=== PATIENT | female | born 1980 | race African-American/Black ===

== ENCOUNTER 2017-06-16 16:26 | Inpatient (IN) | payer OTHER ==
[2017-06-16 18:03] VITALS: BMI 19.5
--- NOTE | 2017-06-16 20:45 | HP ---
COWS - Scale Resting Pulse: 2= AL 101-120 Sweatin= Chills/Flushing Restless Observation: 1= Difficult to Sit Still Pupil Size: 0= Normal to Room Light Bone or Joint Aches: 1= Mild Discomfort Runny Nose/ Eye Tearin= Runny Nose/Eyes GI Upset > 30mins: 0= None Tremor Observation: 1= Tremor Pelican, Not Seen Yawning Observation: 2= >3x During Session Anxiety or Irritability: 2=Irritable/Anxious Goose Flesh Skin: 0=Smooth Skin COWS Score: 12 Admission [facility] - HPI Chief Complaint: "I am here to detox from heroin" Allergies/Adverse Reactions: Allergies Allergy/AdvReac Type Severity Reaction Status Date / Time No Known Allergies Allergy Verified 06/16/17 19:13 History of Present Illness: 36 yo female hx of heroin and cocaine dependence is here seeking detox for the first time. Denies any prior treatments. PMHX: asthma, depression, insomnia. Denies suicidal ideation or suicide attempt. Denies hx of overdose, seizures or blackouts. Reports no period sobriety since initial start drug use at age 34. Exam Limitations: No Limitations - Ebola screening Have you traveled outside of the country in the last 21 days: No Have you had contact with anyone from an Ebola affected area: No Have you been sick,other than usual withdrawal symptoms: No Do you have a fever: No - Review of Systems Constitutional: Chills, Loss of Appetite, Changes in sleep, Unintentional Wgt. Loss (30 lbs in the last two years) EENT: reports: No Symptoms Reported Respiratory: reports: No Symptoms reported Cardiac: reports: No Symptoms Reported GI: reports: No Symptoms Reported Musculoskeletal: reports: Joint Pain Integumentary: reports: No Symptoms Reported Endocrine: reports: No Symptoms Reported Hematology: reports: No Symptoms Reported Psychiatric: reports: Orientated x3, Agitated Other Systems: Reviewed and Negative Patient History - Patient Medical History Hx Anemia: No Hx Asthma: No Hx Chronic Obstructive Pulmonary Disease (COPD): No Hx Cardiac Disorders: No Hx Hypertension: No Hx Hypercholesterolemia: No Hx Pacemaker: No HX Cerebrovascular Accident: No Hx Seizures: No Hx Dementia: No Hx Diabetes: No Hx Gastrointestinal Disorders: No Hx Liver Disease: No Hx Genitourinary Disorders: No Hx Sexually Transmitted Disorders: No Hx Renal Disease (ESRD): No Hx Thyroid Disease: No Hx Human Immunodeficiency Virus (HIV): No (last tested 6 months ago ) Hx Hepatitis C: No Hx Depression: Yes Hx Suicide Attempt: No Hx Bipolar Disorder: No Hx Schizophrenia: No - Patient Surgical History Past Surgical History: No Hx Neurologic Surgery: No Hx Cataract Extraction: No Hx Cardiac Surgery: No Hx Lung Surgery: No Hx Breast Surgery: No Hx Breast Biopsy: No Hx Abdominal Surgery: No Hx Appendectomy: No Hx Cholecystectomy: No Hx Genitourinary Surgery: No Hx Section: No Hx Orthopedic Surgery: No Anesthesia Reaction: No - PPD History Previous Implant?: Yes Documented Results: Negative w/o proof PPD to be Administered?: Yes - Reproductive History Patient is a Female of Child Bearing Age (11 -55 yrs old): Yes - Smoking Cessation Smoking history: Current every day smoker Aproximately how many cigarettes per day: 20 Hx Chewing Tobacco Use: No Initiated information on smoking cessation: Yes 'Breaking Loose' booklet given: 06/16/17 - Substance & Tx. History Hx Alcohol Use: Yes Hx Substance Use: Yes Substance Use Type: Cocaine, Heroin Hx Substance Use Treatment: No - Substances Abused Heroin Route: Inhalation Frequency: Daily Amount used: 5 bags Age of first use: 34 Date of Last Use: 06/16/17 Cocaine Route: Inhalation Frequency: Daily Amount used: 2 bags Age of first use: 34 Date of Last Use: 06/15/17 Family Disease History - Family Disease History Family Disease History: Other: Father (alive and well ), Mother (alive and well ) Admission Physical Exam [facility] - Vital Signs Vital Signs: Vital Signs - 24 hr 06/16/17 17:59 Temperature 97.9 F Pulse Rate 110 H Respiratory 18 Rate Blood Pressure 123/64 - Physical General Appearance: Yes: Appropriately Dressed, Thin, Irritable HEENTM: Yes: EOMI, Hearing grossly Normal, Normal ENT Inspection, Normocephalic , Normal Voice, LAURE, Pharynx Normal, Tm's normal Respiratory: Yes: Chest Non-Tender, Lungs Clear, Normal Breath Sounds, No Respiratory Distress, No Accessory Muscle Use Neck: Yes: No masses,lesions,Nodules, Trachea in good position Breast: Yes: Breast Exam Deferred Cardiology: Yes: Regular Rhythm, Regular Rate Abdominal: Yes: Normal Bowel Sounds, Non Tender, Flat, Soft Genitourinary: Yes: Within Normal Limits Back: Yes: Normal Inspection Musculoskeletal: Yes: full range of Motion, Gait Steady, Pelvis Stable Extremities: Yes: Normal Capillary Refill, Normal Inspection, Normal Range of Motion, Non-Tender Neurological: Yes: anime artist 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 intact, Fully Oriented, Alert, Motor Strength 5/5, Numbness Integumentary: Yes: Normal Color, Warm, Moist Lymphatic: Yes: Within Normal Limits - Diagnostic (1) Asthma Current Visit: Yes Status: Acute Qualifiers: Asthma severity: mild Asthma persistence: intermittent Asthma complication type: unspecified Qualified Code(s): J45.20 - Mild intermittent asthma, uncomplicated (2) Weight loss Current Visit: Yes Status: Acute (3) Depressed affect Current Visit: Yes Status: Acute (4) Alcohol dependence with uncomplicated withdrawal Current Visit: Yes Status: Acute (5) Cocaine dependence Current Visit: Yes Status: Acute Qualifiers: Substance use status: uncomplicated Qualified Code(s): F14.20 - Cocaine dependence, uncomplicated Cleared for Admission [facility] - Detox or Rehab [facility] Level of Care: Medically Managed Detox Regimen/Protocol: Methadone [facility] Breath Alcohol Content Breath Alcohol Content: 0 Urine Pregancy Test - Result Urine Test Results: Negative- NO Line Present Urine Drug Screen - Results Drug Screen Negative: Yes Urine Drug Screen Results: REN-Cocaine, OPI-Opiates, TCA-Tricyclic Antidepress
[2017-06-16] MEDS ORDERED: LOPERAMIDE HCL 2 MG CAPSULE PO PRN (20:47)
[2017-06-16] MEDS ORDERED: IBUPROFEN 400 MG TABLET (FP) PO PRN (20:47)
[2017-06-16] MEDS ORDERED: MAGNESIUM CITRATE 300 ML BOTTLE PO PRN (20:47)
[2017-06-16] MEDS ORDERED: MAGNESIUM HYDROX 2400MG/30ML ORAL SUSPENSION 30 ML CUP PO PRN (20:47)
[2017-06-16] MEDS ORDERED: METHADONE HCL 10 MG TABLET (FOR DETOX USE ONLY) PO ONE ×2 (20:47→23:00)
[2017-06-16] MEDS ORDERED: MAG HYDROX/AL HYDROX/SIMETH 30 ML UNIT-DOSE CUP PO PRN (20:47)
[2017-06-16] MEDS ORDERED: ACETAMINOPHEN 325 MG TABLET (FP) PO PRN (20:47)
[2017-06-16] MEDS ORDERED: MENTHOL/PHENOL 1 EACH UD MM PRN (20:47)
[2017-06-16] MEDS: THIAMINE HCL 100 MG TABLET (FP) PO SCH (22:27)
[2017-06-16] MEDS: diazePAM 5 MG TABLET PO PRN (22:28)
[2017-06-16] MEDS: ALBUTEROL SO4 18 GM HFA INHALER IH PRN (22:39)
[2017-06-17] MEDS: guaiFENesin/D-METHORPHAN HB 10 ML UNIT-DOSE CUPS PO PRN (04:09)
[2017-06-17] MEDS: ALBUTEROL SO4 18 GM HFA INHALER IH PRN ×3 (04:09→18:47)
[2017-06-17 08:48] LABS: URINE APPEARANCE TURBID; URINE BILIRUBIN NEGATIVE (<2.0 mg/dL); URINE BLOOD NEGATIVE (NEGATIVE); URINE COLOR YELLOW; URINE GLUCOSE (UA) NEGATIVE (NEGATIVE); URINE KETONE NEGATIVE (NEGATIVE); URINE LEUK ESTERASE NEGATIVE (NEGATIVE); URINE NITRITE NEGATIVE (NEGATIVE); URINE PROTEIN NEGATIVE (NEGATIVE)
[2017-06-17] MEDS ORDERED: METHADONE HCL 10 MG TABLET (FOR DETOX USE ONLY) PO ONE (10:00)
--- NOTE | 2017-06-17 10:11 | PN ---
S CIWA - CIWA Score Nausea/Vomitin Muscle Tremors: 3 Anxiety: 3 Agitation: 2 Paroxysmal Sweats: 1-Minimal Palms Moist Orientation: 0-Oriented Tacttile Disturbances: 1-Very Mild Itch/Numbness Auditory Disturbances: 1-Very Mild Visual Disturbances: 0-None Headache: 2-Mild CIWA-Ar Total Score: 16 BHS Progress Note (SOAP) Subjective: ALERT,IRRITABLE,ANXIOUS,INTERRUPTED SLEEP,TREMOR Objective: 06/17/17 10:09 Vital Signs Temperature 97.7 F 06/17/17 09:16 Pulse Rate 97 H 06/17/17 09:16 Respiratory Rate 18 06/17/17 09:16 Blood Pressure 132/78 06/17/17 09:16 O2 Sat by Pulse Oximetry (%) EKG NSR 100/MIN NO CHEST PAIN,NO SOB,NO SOB Laboratory Last Values Urine Color Yellow 06/16/17 22:00 Urine Appearance Turbid 06/16/17 22:00 Urine pH 6.0 (5.0-8.0) 06/16/17 22:00 Ur Specific [place] 1.029 (1.001-1.035) 06/16/17 22:00 Urine Protein Negative (NEGATIVE) 06/16/17 22:00 Urine Glucose (UA) Negative (NEGATIVE) 06/16/17 22:00 Urine Ketones Negative (NEGATIVE) 06/16/17 22:00 Urine Blood Negative (NEGATIVE) 06/16/17 22:00 Urine Nitrite Negative (NEGATIVE) 06/16/17 22:00 Urine Bilirubin Negative (<2.0 mg/dL) 06/16/17 22:00 Urine Urobilinogen 2.0 mg/dL (0.2-1.0) H 06/16/17 22:00 Ur Leukocyte Esterase Negative (NEGATIVE) 06/16/17 22:00 LABS PENDING Assessment: 06/17/17 10:11 WITHDRAWAL SYMPTOM Plan: CONTINUE DETOX
[2017-06-17] MEDS: PRENATAL VITAMINS W/ FOLIC ACID TABLET (FP) PO SCH (10:35)
[2017-06-17 10:54] LABS: HEMATOCRIT 36.8 % (32.4-45.2); HEMOGLOBIN 12.1 GM/dL (10.7-15.3); MCH 28.8 pg (25.7-33.7); MEAN CELL VOLUME 87.4 fl (80-96); MEAN PLT VOLUME 8.3 fl (7.5-11.1); PLATELET COUNT 276 K/MM3 (134-434); RBC 4.21 M/mm3 (3.60-5.2); WHITE BLOOD COUNT 8.2 K/mm3 (4.0-10.0)
--- NOTE | 2017-06-17 10:54 | EKG ---
Test Reason : Blood Pressure : / mmHG Vent. Rate : 100 BPM Atrial Rate : 100 BPM P-R Int : 122 ms QRS Dur : 066 ms QT Int : 324 ms P-R-T Axes : 059 071 053 degrees QTc Int : 417 ms NORMAL SINUS RHYTHM SEPTAL INFARCT , AGE UNDETERMINED ABNORMAL ECG NO PREVIOUS ECGS AVAILABLE Confirmed by VIANNEY FAUSTIN MD ([id number]) on 06/17/2017 10:53:46 AM Referred By: Confirmed By:VIANNEY FAUSTIN MD
[2017-06-17 11:03] LABS: ANION GAP 6 (8-16); BLOOD UREA NITROGEN 9 mg/dL (7-18); CALCIUM 8.6 mg/dL (8.5-10.1); CHLORIDE 108 mmol/L (98-107); CO2 28 mmol/L (21-32); GLUCOSE,RANDOM 83 mg/dL (74-106); POTASSIUM 4.4 mmol/L (3.5-5.1); SODIUM 142 mmol/L (136-145)
[2017-06-17 11:09] LABS: ALBUMIN 3.2 g/dl (3.4-5.0); ALK PHOS 93 U/L (45-117); BILIRUBIN,TOTAL 0.5 mg/dL (0.2-1.0); CREATININE 0.6 mg/dL (0.55-1.02); SGOT/AST 13 U/L (15-37); SGPT/ALT 12 U/L (12-78)
--- NOTE | 2017-06-17 12:24 | CONSULT ---
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 Substance Abuse History: - Smoking Cessation. Smoking history: Current every day smoker. Aproximately how many cigarettes per day: 20. Hx Chewing Tobacco Use: No. Initiated information on smoking cessation: Yes. 'Breaking Loose' booklet given: 06/16/17. - Substance & Tx. History. Hx Alcohol Use: Yes. Hx Substance Use: Yes. Substance Use Type: Cocaine, Heroin. Hx Substance Use Treatment: No. - Substances Abused. Heroin. Route: Inhalation. Frequency : Daily. Amount used: 5 bags. Age of first use: 34. Date of Last Use: . Cocaine. Route: Inhalation. Frequency: Daily. Amount used: 2 bags. Age of first use: 34. Date of Last Use: 06/15/17 Medical History: Asthma, i Psychiatric History: Denies past psychiatric history Physical/Sexual Abuse/Trauma History: Denies Additional Comment: Observation Mental Status Exam - Mental Status Exam Alert and Oriented to: Person Cognitive Function: Fair Patient Appearance: Unkempt Mood: Apprehensive Patient Behavior: Cooperative Speech Pattern: Appropriate Voice Loudness: Normal Thought Process: Goal Oriented Thought Disorder: Being Controlled Hallucinations: Denies Suicidal Ideation: Denies Homicidal Ideation: Denies Insight/Judgement: Fair Sleep: Difficulty falling asleep Appetite: Weight loss Muscle strength/Tone: Normal Gait/Station: Normal Additional Comments: Observation Psychiatric Findings - Problem List ([place] 1, 2,3) (1) Opioid dependence Current Visit: Yes Status: Acute (2) Drug-induced mood disorder Current Visit: Yes Status: Suspected (3) Alcohol dependence with uncomplicated withdrawal Current Visit: Yes Status: Acute (4) Cocaine dependence Current Visit: Yes Status: Acute Qualifiers: Substance use status: uncomplicated Qualified Code(s): F14.20 - Cocaine dependence, uncomplicated (5) Weight loss Current Visit: Yes Status: Acute - Initial Treatment Plan Initial Treatment Plan: Observation
[2017-06-17] MEDS: diazePAM 5 MG TABLET PO PRN ×2 (12:55→21:01)
--- NOTE | 2017-06-17 18:50 | PN ---
[facility] Progress Note Note: Patient asthmatic with frequent cough. Vital Signs Temperature 96.4 F L 06/17/17 18:43 Pulse Rate 103 H 06/17/17 18:43 Respiratory Rate 20 06/17/17 18:43 Blood Pressure 122/78 06/17/17 18:43 O2 Sat by Pulse Oximetry (%) Dueo NEb PRN Increase fluids Continue to monitor
[2017-06-17] MEDS: ALBUTEROL SO4 2.5/IPRATROPIUM 0.5 INH SOL 3 ML VIAL.NEB. NEB PRN (20:57)
[2017-06-17] MEDS: THIAMINE HCL 100 MG TABLET (FP) PO SCH (21:01)
[2017-06-17] MEDS: MELATONIN 5 MG TABLETS PO PRN (22:21)
[2017-06-18] MEDS: diazePAM 5 MG TABLET PO PRN ×5 (01:14→19:13)
[2017-06-18] MEDS: ALBUTEROL SO4 18 GM HFA INHALER IH PRN ×2 (01:14→08:48)
[2017-06-18] MEDS: ALBUTEROL SO4 2.5/IPRATROPIUM 0.5 INH SOL 3 ML VIAL.NEB. NEB PRN ×2 (03:59→21:04)
[2017-06-18] MEDS ORDERED: METHADONE HCL 5 MG TABLET (FOR DETOX USE ONLY) PO ONE (10:00)
[2017-06-18] MEDS: PRENATAL VITAMINS W/ FOLIC ACID TABLET (FP) PO SCH (10:26)
[2017-06-18] MEDS: P-EPHED 60MG/TRIPROLIDI 2.5MG TABLET PO PRN (10:29)
[2017-06-18] MEDS: guaiFENesin/D-METHORPHAN HB 10 ML UNIT-DOSE CUPS PO PRN (10:29)
[2017-06-18] MEDS ORDERED: predniSONE 20 MG TABLET (UD) PO ONE (10:55)
[2017-06-18] MEDS: hydrOXYzine PAMOATE 50 MG CAPSULE (FP) PO PRN ×2 (11:40→22:18)
--- NOTE | 2017-06-18 11:57 | PN ---
S CIWA - CIWA Score Nausea/Vomitin Muscle Tremors: 3 Anxiety: 3 Agitation: 2 Paroxysmal Sweats: 1-Minimal Palms Moist Orientation: 0-Oriented Tacttile Disturbances: 1-Very Mild Itch/Numbness Auditory Disturbances: 1-Very Mild Visual Disturbances: 0-None Headache: 2-Mild CIWA-Ar Total Score: 16 BHS Progress Note (SOAP) Subjective: ALERT,IRRITABLE,ANXIOUS,INTERRUPTED SLEEP,TREMOR,WHEEZING Objective: 06/18/17 11:54 Vital Signs Temperature 97.3 F L 06/18/17 10:14 Pulse Rate 107 H 06/18/17 10:14 Respiratory Rate 20 06/18/17 10:14 Blood Pressure 123/87 06/18/17 10:14 O2 Sat by Pulse Oximetry (%) Laboratory Last Values WBC 8.2 K/mm3 (4.0-10.0) 06/17/17 07:00 RBC 4.21 M/mm3 (3.60-5.2) 06/17/17 07:00 Hgb 12.1 GM/dL (10.7-15.3) 06/17/17 07:00 Hct 36.8 % (32.4-45.2) 06/17/17 07:00 MCV 87.4 fl (80-96) 06/17/17 07:00 MCH 28.8 pg (25.7-33.7) 06/17/17 07:00 MCHC 33.0 g/dl (32.0-36.0) 06/17/17 07:00 RDW 14.0 % (11.6-15.6) 06/17/17 07:00 Plt Count 276 K/MM3 (134-434) 06/17/17 07:00 MPV 8.3 fl (7.5-11.1) 06/17/17 07:00 Sodium 142 mmol/L (136-145) 06/17/17 07:00 Potassium 4.4 mmol/L (3.5-5.1) 06/17/17 07:00 Chloride 108 mmol/L (98-107) H 06/17/17 07:00 Carbon Dioxide 28 mmol/L (21-32) 06/17/17 07:00 Anion Gap 6 (8-16) L 06/17/17 07:00 BUN 9 mg/dL (7-18) 06/17/17 07:00 Creatinine 0.6 mg/dL (0.55-1.02) 06/17/17 07:00 Creat Clearance w eGFR > 60 (>60) 06/17/17 07:00 Random Glucose 83 mg/dL (74-106) 06/17/17 07:00 Calcium 8.6 mg/dL (8.5-10.1) 06/17/17 07:00 Total Bilirubin 0.5 mg/dL (0.2-1.0) 06/17/17 07:00 AST 13 U/L (15-37) L 06/17/17 07:00 ALT 12 U/L (12-78) 06/17/17 07:00 Alkaline Phosphatase 93 U/L (45-117) 06/17/17 07:00 Total Protein 6.0 g/dl (6.4-8.2) L 06/17/17 07:00 Albumin 3.2 g/dl (3.4-5.0) L 06/17/17 07:00 Urine Color Yellow 06/16/17 22:00 Urine Appearance Turbid 06/16/17 22:00 Urine pH 6.0 (5.0-8.0) 06/16/17 22:00 Ur Specific [place] 1.029 (1.001-1.035) 06/16/17 22:00 Urine Protein Negative (NEGATIVE) 06/16/17 22:00 Urine Glucose (UA) Negative (NEGATIVE) 06/16/17 22:00 Urine Ketones Negative (NEGATIVE) 06/16/17 22:00 Urine Blood Negative (NEGATIVE) 06/16/17 22:00 Urine Nitrite Negative (NEGATIVE) 06/16/17 22:00 Urine Bilirubin Negative (<2.0 mg/dL) 06/16/17 22:00 Urine Urobilinogen 2.0 mg/dL (0.2-1.0) H 06/16/17 22:00 Ur Leukocyte Esterase Negative (NEGATIVE) 06/16/17 22:00 06/18/17 11:55 RPR PENDING Assessment: 06/18/17 11:55 ACUTE EXACERBATION OF ASTHMA STATED ON PREDNISONE Plan: CONTINUE DETOX,STARTED ON PREDNISONE,TAPER OFF PREDNISONE,ALBUTEROL INHALER AND DUONEB NEBULIZER
[2017-06-18] MEDS: MELATONIN 5 MG TABLETS PO PRN (22:18)
[2017-06-18] MEDS: THIAMINE HCL 100 MG TABLET (FP) PO SCH (22:18)
[2017-06-19] MEDS: diazePAM 5 MG TABLET PO PRN ×3 (00:17→15:42)
[2017-06-19] MEDS: guaiFENesin/D-METHORPHAN HB 10 ML UNIT-DOSE CUPS PO PRN ×2 (04:23→11:05)
[2017-06-19] MEDS ORDERED: METHADONE HCL 5 MG TABLET (FOR DETOX USE ONLY) PO ONE (10:00)
[2017-06-19] MEDS ORDERED: predniSONE 10 MG TABLET (UD) PO ONE (10:00)
--- NOTE | 2017-06-19 10:44 | PN ---
S Progress Note (SOAP) Subjective: ALERT,IRRITABLE,ANXIOUS,INTERRUPTED SLEEP Objective: 06/19/17 10:43 Vital Signs Temperature 96.8 F L 06/19/17 09:56 Pulse Rate 113 H 06/19/17 09:56 Respiratory Rate 20 06/19/17 09:56 Blood Pressure 103/90 06/19/17 09:56 O2 Sat by Pulse Oximetry (%) Assessment: 06/19/17 10:43 WITHDRAWAL SYMPTOM LUNG CLEAR,NO WHEEZING Plan: CONTINUE DETOX,DISCHARGE IN AM
--- NOTE | 2017-06-19 10:48 | PN ---
S Progress Note Note: ADDENDUM CONTINUE DETOX,PATIENT DISCHARGE DAY IS 06/21/17
[2017-06-19] MEDS: PRENATAL VITAMINS W/ FOLIC ACID TABLET (FP) PO SCH (10:59)
[2017-06-19] MEDS: P-EPHED 60MG/TRIPROLIDI 2.5MG TABLET PO PRN (11:01)
[2017-06-19] MEDS: hydrOXYzine PAMOATE 50 MG CAPSULE (FP) PO PRN ×2 (11:04→16:44)
[2017-06-19] MEDS: ALBUTEROL SO4 18 GM HFA INHALER IH PRN ×2 (11:05→19:52)
[2017-06-19] MEDS: ALBUTEROL SO4 2.5/IPRATROPIUM 0.5 INH SOL 3 ML VIAL.NEB. NEB PRN (15:37)
--- NOTE | 2017-06-19 16:39 | PN ---
Psychiatric Progress Note Vital Signs: Vital Signs Period Temp Pulse Resp BP Sys/Olivares Pulse Ox Last 24 Hr 96.8 F-98.2 F 101-114 18-20 103-139/78-90 Date of Session: 06/20/17 Chief Complaint:: " I would like to restart my medications." HPI: Pt. admitted to for cocaine dependence. ROS: Unremarkable Current Medications: Active Medications Generic Name Dose Route Start Last Admin Trade Name Freq PRN Reason Stop Dose Admin Acetaminophen 650 mg 06/16/17 20:47 Tylenol - PO Q4H PRN FEVER Al Hydroxide/Mg Hydroxide 30 ml 06/16/17 20:47 Mylanta Oral Suspension - PO Q6H PRN DYSPEPSIA Albuterol Sulfate 2 puff 06/16/17 22:00 06/19/17 11:05 Ventolin Hfa Inhaler - IH 2 puff Q6H PRN Administration SHORTNESS OF BREATH Albuterol/Ipratropium 1 amp 06/17/17 18:48 06/19/17 15:37 Duoneb - NEB 1 amp Q6H PRN Administration SHORTNESS OF BREATH Diazepam 10 mg 06/16/17 20:47 06/19/17 15:42 Valium - PO 06/19/17 20:46 10 mg Q4H PRN Administration WITHDRAWAL(CONT SUBST) Eucalyptus/Menthol/Phenol/Sorbitol 1 each 06/16/17 20:47 Cepastat Lozenge - MM Q4H PRN SORE THROAT Guaifenesin 10 ml 06/16/17 20:47 06/19/17 11:05 Robitussin Dm - PO 10 ml Q6H PRN Administration COUGH Hydroxyzine Pamoate 50 mg 06/16/17 20:47 06/19/17 11:04 Vistaril - PO 50 mg Q4H PRN Administration AGITATION Ibuprofen 400 mg 06/16/17 20:47 Motrin - PO Q6H PRN PAIN LEVEL 4-6 Loperamide HCl 4 mg 06/16/17 20:47 Imodium - PO Q6H PRN DIARRHEA Magnesium Citrate 300 ml 06/16/17 20:47 Citroma - PO Q48H PRN CONSTIPATION Magnesium Hydroxide 30 ml 06/16/17 20:47 Milk Of Magnesia - PO DAILY PRN CONSTIPATION Melatonin 5 mg 06/16/17 22:00 06/18/17 22:18 Melatonin PO 5 mg HS PRN Administration INSOMNIA Methadone HCl 5 mg 06/21/17 06:00 Dolophine - PO 06/21/17 06:01 ONCE@0600 ONE Methadone HCl 10 mg 06/20/17 10:00 Dolophine - PO 06/20/17 10:01 ONCE ONE Prednisone 20 mg 06/20/17 10:00 Deltasone - PO 06/20/17 10:01 ONCE ONE Prednisone 10 mg 06/21/17 10:00 Deltasone - PO 06/21/17 10:01 ONCE ONE Prednisone 5 mg 06/22/17 10:00 Deltasone - PO 06/22/17 10:01 ONCE ONE Multivit/Folic Acid/Iron 1 tab 06/17/17 10:00 06/19/17 10:59 Vitamins (Sjr) - PO 1 tab DAILY BLANCA Administration Pseudoephedrine/Triprolidine 1 combo 06/16/17 20:47 06/19/17 11:01 Actifed - PO 1 combo TID PRN Administration NASAL CONGESTION Thiamine HCl 100 mg 06/16/17 22:00 06/18/17 22:18 Vitamin B1 - PO 100 mg HS BLANCA Administration Medication(s) Change(s): Yes. Will add Wellbutrin 150mg XL PO daily and Mirtzapine 15mg qhs Current Side Effect: No Lab tests ordered: No Lab tests reviewed: Yes Provider note:: Monitoring Coordinator met with patient for psychiatric reconsultation. Pt. requesting to restart Wellbutrin 150mg XL PO daily + Mirtzapine 15 qhs. Pt. reports medication nonadherence for " several months." Pt. states she was seeing a psychiatrist at the [facility] in [place] while attending the methadone clinic and was diagnosed with MDD. Pt. has not seen a psychiatrist in approximately four months. Pharmacy claims reviewed. Will order Wellbutrin 150mg XL PO daily + Mirtzapine 15 qhs. Benefits and side effects discussed. Verbal consent given. Will continue to monitor. Total face to face time:: 30 Mental Status Exam - Mental Status Exam Alert and Oriented to: Time, Place, Person Cognitive Function: Good Patient Appearance: Well Groomed Mood: Hopeful Affect: Appropriate Patient Behavior: Appropriate, Cooperative Speech Pattern: Clear, Appropriate Voice Loudness: Normal Thought Process: Goal Oriented Thought Disorder: Not Present Hallucinations: Denies Suicidal Ideation: Denies Homicidal Ideation: Denies Insight/Judgement: Poor Sleep: Poorly Appetite: Fair Muscle strength/Tone: Normal Gait/Station: Normal Psychiatric Treatment Plan - Problem List (1) Alcohol dependence with uncomplicated withdrawal Current Visit: Yes (2) Cocaine dependence Current Visit: Yes Qualifiers: Substance use status: uncomplicated Qualified Code(s): F14.20 - Cocaine dependence, uncomplicated (3) Opioid dependence Current Visit: Yes (4) Drug-induced mood disorder Current Visit: Yes (5) MDD (major depressive disorder) Current Visit: Yes Initial treatment plan: Reports history. Pharmacy claims reviewed. Will restart patient on Wellbutrin 150mg XL PO daily + Mirtzapine 15mg qhs.
[2017-06-19] MEDS: THIAMINE HCL 100 MG TABLET (FP) PO SCH (22:37)
[2017-06-19] MEDS: MIRTAZAPINE 15 MG TABLET (FP) PO SCH (22:37)
[2017-06-20] MEDS: P-EPHED 60MG/TRIPROLIDI 2.5MG TABLET PO PRN (03:49)
[2017-06-20] MEDS: hydrOXYzine PAMOATE 50 MG CAPSULE (FP) PO PRN ×4 (03:49→19:56)
[2017-06-20] MEDS: ALBUTEROL SO4 18 GM HFA INHALER IH PRN ×2 (03:50→22:28)
[2017-06-20] MEDS ORDERED: METHADONE HCL 10 MG TABLET (FOR DETOX USE ONLY) PO ONE (10:00)
[2017-06-20] MEDS ORDERED: predniSONE 20 MG TABLET (UD) PO ONE (10:00)
[2017-06-20] MEDS: PRENATAL VITAMINS W/ FOLIC ACID TABLET (FP) PO SCH (10:36)
--- NOTE | 2017-06-20 13:42 | PN ---
S Progress Note (SOAP) Subjective: ALERT,INTERRUPTED SLEEP,PAIN IN THE BODY Objective: 06/20/17 13:41 Vital Signs Temperature 96.4 F L 06/20/17 10:45 Pulse Rate 111 H 06/20/17 10:45 Respiratory Rate 18 06/20/17 10:45 Blood Pressure 119/74 06/20/17 10:45 O2 Sat by Pulse Oximetry (%) Assessment: 06/20/17 13:41 WITHDRAWAL SYMPTOM Plan: CONTINUE DETOX,DISCHARGE IN AM,
--- NOTE | 2017-06-20 15:31 | PN ---
Psychiatric Progress Note Vital Signs: Vital Signs Period Temp Pulse Resp BP Sys/Olivares Pulse Ox Last 24 Hr 96.4 F-97.9 F 108-119 18-20 111-123/58-78 Date of Session: 06/20/17 Chief Complaint:: [facility] HPI: Pt. admitted to for cocaine dependence. ROS: Unremarkable Current Medications: Active Medications Generic Name Dose Route Start Last Admin Trade Name Freq PRN Reason Stop Dose Admin Acetaminophen 650 mg 06/16/17 20:47 Tylenol - PO Q4H PRN FEVER Al Hydroxide/Mg Hydroxide 30 ml 06/16/17 20:47 Mylanta Oral Suspension - PO Q6H PRN DYSPEPSIA Albuterol Sulfate 2 puff 06/16/17 22:00 06/20/17 03:50 Ventolin Hfa Inhaler - IH 2 puff Q6H PRN Administration SHORTNESS OF BREATH Albuterol/Ipratropium 1 amp 06/17/17 18:48 06/19/17 15:37 Duoneb - NEB 1 amp Q6H PRN Administration SHORTNESS OF BREATH Bupropion HCl 150 mg 06/20/17 10:00 06/20/17 10:36 Wellbutrin Xl - PO 150 mg DAILY BLANCA Administration Eucalyptus/Menthol/Phenol/Sorbitol 1 each 06/16/17 20:47 Cepastat Lozenge - MM Q4H PRN SORE THROAT Guaifenesin 10 ml 06/16/17 20:47 06/19/17 11:05 Robitussin Dm - PO 10 ml Q6H PRN Administration COUGH Hydroxyzine Pamoate 50 mg 06/16/17 20:47 06/20/17 14:42 Vistaril - PO 50 mg Q4H PRN Administration AGITATION Ibuprofen 400 mg 06/16/17 20:47 Motrin - PO Q6H PRN PAIN LEVEL 4-6 Loperamide HCl 4 mg 06/16/17 20:47 Imodium - PO Q6H PRN DIARRHEA Magnesium Citrate 300 ml 06/16/17 20:47 Citroma - PO Q48H PRN CONSTIPATION Magnesium Hydroxide 30 ml 06/16/17 20:47 Milk Of Magnesia - PO DAILY PRN CONSTIPATION Melatonin 5 mg 06/16/17 22:00 06/18/17 22:18 Melatonin PO 5 mg HS PRN Administration INSOMNIA Methadone HCl 5 mg 06/21/17 06:00 Dolophine - PO 06/21/17 06:01 ONCE@0600 ONE Mirtazapine 15 mg 06/19/17 22:00 06/19/17 22:37 Remeron - PO 15 mg HS BLANCA Administration Prednisone 10 mg 06/21/17 10:00 Deltasone - PO 06/21/17 10:01 ONCE ONE Prednisone 5 mg 06/22/17 10:00 Deltasone - PO 06/22/17 10:01 ONCE ONE Multivit/Folic Acid/Iron 1 tab 06/17/17 10:00 06/20/17 10:36 Vitamins (Sjr) - PO 1 tab DAILY BLANCA Administration Pseudoephedrine/Triprolidine 1 combo 06/16/17 20:47 06/20/17 03:49 Actifed - PO 1 combo TID PRN Administration NASAL CONGESTION Thiamine HCl 100 mg 06/16/17 22:00 06/19/17 22:37 Vitamin B1 - PO 100 mg HS BLANCA Administration Medication(s) Change(s): Yes. Will add ambien 10mg prn for insomnia. Current Side Effect: No Lab tests ordered: No Lab tests reviewed: Yes Provider note:: Firer Low Pressure spoke to patient requesting psychiatric reconsultation. Patient reports poor sleep. Reports awakening at 0300 and 0600. Pt. is currently accepting melatonin 5mg with poor effect. Melatonin to be discontinued and ambien 10mg qhs to be ordered. Pt. reports favorable effect from previously accepting ambien. Sleep hygiene discussed. Benefits and side effects discussed Pt. made aware of the risk of parasomnia. Verbal consent given. Will continue to monitor. Total face to face time:: 25 Mental Status Exam - Mental Status Exam Alert and Oriented to: Time, Place, Person Cognitive Function: Good Patient Appearance: Well Groomed Mood: Hopeful Affect: Appropriate, Mood Congruent Patient Behavior: Appropriate, Cooperative Speech Pattern: Clear, Appropriate Voice Loudness: Normal Thought Process: Goal Oriented Thought Disorder: Not Present Hallucinations: Denies Suicidal Ideation: Denies Homicidal Ideation: Denies Insight/Judgement: Poor Sleep: Poorly Appetite: Fair Muscle strength/Tone: Normal Gait/Station: Normal Psychiatric Treatment Plan - Problem List (1) Alcohol dependence with uncomplicated withdrawal Current Visit: Yes (2) Cocaine dependence Current Visit: Yes Qualifiers: Substance use status: uncomplicated Qualified Code(s): F14.20 - Cocaine dependence, uncomplicated (3) Opioid dependence Current Visit: Yes (4) Drug-induced mood disorder Current Visit: Yes (5) MDD (major depressive disorder) Current Visit: Yes (6) Insomnia Current Visit: Yes
[2017-06-20] MEDS: ALBUTEROL SO4 2.5/IPRATROPIUM 0.5 INH SOL 3 ML VIAL.NEB. NEB PRN (18:00)
[2017-06-20] MEDS ORDERED: ZOLPIDEM TARTRATE 10 MG TABLET (PARK CARE ONLY) PO PRN (22:00)
[2017-06-20] MEDS: MIRTAZAPINE 15 MG TABLET (FP) PO SCH (22:27)
[2017-06-20] MEDS: THIAMINE HCL 100 MG TABLET (FP) PO SCH (22:28)
[2017-06-21] MEDS ORDERED: METHADONE HCL 5 MG TABLET (FOR DETOX USE ONLY) PO ONE (06:00)
[2017-06-21] MEDS: P-EPHED 60MG/TRIPROLIDI 2.5MG TABLET PO PRN (06:03)
[2017-06-21] MEDS: hydrOXYzine PAMOATE 50 MG CAPSULE (FP) PO PRN ×2 (06:05→10:14)
[2017-06-21 07:06] VITALS: BP 110/66; PULSE 94; TEMP 97.3
[2017-06-21] MEDS ORDERED: predniSONE 10 MG TABLET (UD) PO ONE (10:00)
[2017-06-21] MEDS: PRENATAL VITAMINS W/ FOLIC ACID TABLET (FP) PO SCH (10:12)
--- NOTE | 2017-06-21 11:23 | DS ---
[facility] Detox Discharge Summary Admission Date: 06/16/17 Discharge Date: 06/21/17 - History Present History: Opioid Dependence Additional Comments: 36 years old female admitted for opioid detox completed detox regimen tolerated well alert oriented x 3 no acute distress wants to go [facility]care - Physical Exam Results Vital Signs: Vital Signs Temperature 97.3 F L 06/21/17 07:05 Pulse Rate 94 H 06/21/17 07:05 Respiratory Rate 18 06/21/17 07:05 Blood Pressure 110/66 06/21/17 07:05 O2 Sat by Pulse Oximetry (%) Pertinent Admission Physical Exam Findings: withdrawal sx Vital Signs Temperature 97.3 F L 06/21/17 07:05 Pulse Rate 94 H 06/21/17 07:05 Respiratory Rate 18 06/21/17 07:05 Blood Pressure 110/66 06/21/17 07:05 O2 Sat by Pulse Oximetry (%) Laboratory Last Values WBC 8.2 K/mm3 (4.0-10.0) 06/17/17 07:00 RBC 4.21 M/mm3 (3.60-5.2) 06/17/17 07:00 Hgb 12.1 GM/dL (10.7-15.3) 06/17/17 07:00 Hct 36.8 % (32.4-45.2) 06/17/17 07:00 MCV 87.4 fl (80-96) 06/17/17 07:00 MCH 28.8 pg (25.7-33.7) 06/17/17 07:00 MCHC 33.0 g/dl (32.0-36.0) 06/17/17 07:00 RDW 14.0 % (11.6-15.6) 06/17/17 07:00 Plt Count 276 K/MM3 (134-434) 06/17/17 07:00 MPV 8.3 fl (7.5-11.1) 06/17/17 07:00 Sodium 142 mmol/L (136-145) 06/17/17 07:00 Potassium 4.4 mmol/L (3.5-5.1) 06/17/17 07:00 Chloride 108 mmol/L (98-107) H 06/17/17 07:00 Carbon Dioxide 28 mmol/L (21-32) 06/17/17 07:00 Anion Gap 6 (8-16) L 06/17/17 07:00 BUN 9 mg/dL (7-18) 06/17/17 07:00 Creatinine 0.6 mg/dL (0.55-1.02) 06/17/17 07:00 Creat Clearance w eGFR > 60 (>60) 06/17/17 07:00 Random Glucose 83 mg/dL (74-106) 06/17/17 07:00 Calcium 8.6 mg/dL (8.5-10.1) 06/17/17 07:00 Total Bilirubin 0.5 mg/dL (0.2-1.0) 06/17/17 07:00 AST 13 U/L (15-37) L 06/17/17 07:00 ALT 12 U/L (12-78) 06/17/17 07:00 Alkaline Phosphatase 93 U/L (45-117) 06/17/17 07:00 Total Protein 6.0 g/dl (6.4-8.2) L 06/17/17 07:00 Albumin 3.2 g/dl (3.4-5.0) L 06/17/17 07:00 Urine Color Yellow 06/16/17 22:00 Urine Appearance Turbid 06/16/17 22:00 Urine pH 6.0 (5.0-8.0) 06/16/17 22:00 Ur Specific [place] 1.029 (1.001-1.035) 06/16/17 22:00 Urine Protein Negative (NEGATIVE) 06/16/17 22:00 Urine Glucose (UA) Negative (NEGATIVE) 06/16/17 22:00 Urine Ketones Negative (NEGATIVE) 06/16/17 22:00 Urine Blood Negative (NEGATIVE) 06/16/17 22:00 Urine Nitrite Negative (NEGATIVE) 06/16/17 22:00 Urine Bilirubin Negative (<2.0 mg/dL) 06/16/17 22:00 Urine Urobilinogen 2.0 mg/dL (0.2-1.0) H 06/16/17 22:00 Ur Leukocyte Esterase Negative (NEGATIVE) 06/16/17 22:00 RPR Titer Nonreactive (NONREACTIVE) 06/17/17 07:00 lab noted - Treatment Hospital Course: Detox Protocol Followed, Detoxed Safely, Responded well, Discharged Condition Good, Rehab Referral Accepted Patient has Accepted a Rehab Referral to: [facility] - Medication Discharge Medications: Ambulatory Orders Bupropion HCl [Wellbutrin Xl -] 150 mg PO DAILY #30 tab.sr.24h 06/20/17 Mirtazapine [Remeron -] 15 mg PO HS #30 tablet 06/20/17 hydrOXYzine PAMOATE [Vistaril -] 50 mg PO Q8H PRN #30 capsule 06/20/17 Albuterol Sulfate Inhaler - [Ventolin HFA Inhaler -] 1 - 2 inh PO QID #1 inhaler 06/21/17 - Diagnosis (1) Asthma Status: Chronic Qualifiers: Asthma severity: mild Asthma persistence: intermittent Asthma complication type: unspecified Qualified Code(s): J45.20 - Mild intermittent asthma, uncomplicated (2) COPD (chronic obstructive pulmonary disease) Status: Chronic Qualifiers: COPD type: COPD with acute exacerbation Qualified Code(s): J44.1 - Chronic obstructive pulmonary disease with (acute) exacerbation (3) Opioid dependence Status: Acute Qualifiers: Substance use status: uncomplicated Qualified Code(s): F11.20 - Opioid dependence, uncomplicated (4) MDD (major depressive disorder) Status: Suspected Qualifiers: Major depression recurrence: recurrent Active/Remission status: in partial remission Qualified Code(s): F33.41 - Major depressive disorder, recurrent, in partial remission - AMA Did Patient Leave Against Medical Advice: No
[2017-06-22] MEDS ORDERED: predniSONE 5 MG TABLET (UD) PO ONE (10:00)
== END 2017-06-21 10:20 | disposition home or self-care (01) | DRG 773 ==
LOC: YASAS 16:26 → Y6N 19:25
PROVIDERS: ADMIT Internal Medicine; ATTEND Internal Medicine
PROC: HZ2ZZZZ Detoxification Services for Substance Abuse Treatment (ICD-10-PCS; principal; 2017-06-16)
DX: F11.20 Opioid dependence, uncomplicated (principal); F10.230 Alcohol dependence with withdrawal, uncomplicated; F14.20 Cocaine dependence, uncomplicated; F19.24 Other psychoactive substance dependence with psychoactive substance-induced mood disorder; F33.41 Major depressive disorder, recurrent, in partial remission; J45.20 Mild intermittent asthma, uncomplicated; J44.1 Chronic obstructive pulmonary disease with (acute) exacerbation; R63.4 Abnormal weight loss; Z68.1 Body mass index [BMI] 19.9 or less, adult
CPT/HCPCS: 36415; 80053; 81003; 85027; 86593; 93005; 93010; 94640

== ENCOUNTER 2020-07-27 12:35 | Inpatient (IN) | payer OTHER ==
[2020-07-27 13:47] VITALS: BMI 21.1
[2020-07-27] MEDS ORDERED: METHOCARBAMOL 500 MG TABLET PO PRN (14:13)
[2020-07-27] MEDS ORDERED: MAGNESIUM HYDROX 2400MG/30ML ORAL SUSPENSION 30 ML CUP PO PRN (14:13)
[2020-07-27] MEDS ORDERED: IBUPROFEN 400 MG TABLET (FP) PO PRN (14:13)
[2020-07-27] MEDS ORDERED: MAGNESIUM CITRATE 300 ML BOTTLE PO PRN (14:13)
[2020-07-27] MEDS ORDERED: NICOTINE POLACRILEX 2 MG GUM BUC PRN (14:13)
[2020-07-27] MEDS ORDERED: MENTHOL/PHENOL 1 EACH UD MM PRN (14:13)
[2020-07-27] MEDS ORDERED: BISMUTH SUBSALICYLATE 524 MG/30 ML PO PRN (14:13)
[2020-07-27] MEDS ORDERED: ACETAMINOPHEN 325 MG TABLET (FP) PO PRN (14:13)
[2020-07-27] MEDS ORDERED: MAG HYDROX/AL HYDROX/SIMETH 30 ML UNIT-DOSE CUP PO PRN (14:13)
[2020-07-27] MEDS ORDERED: ONDANSETRON *ODT* 4 MG TABLET SL PRN (14:13)
[2020-07-27 16:35] LABS: HEMATOCRIT 40.4 % (32.4-45.2); HEMOGLOBIN 13.2 GM/dL (10.7-15.3); MCH 28.2 pg (25.7-33.7); MCHC 32.8 g/dl (32.0-36.0); MEAN CELL VOLUME 85.9 fl (80-96); MEAN PLT VOLUME 8.5 fl (7.5-11.1); PLATELET COUNT 317 K/MM3 (134-434); RDW 15.5 % (11.6-15.6); WHITE BLOOD COUNT 8.6 K/mm3 (4.0-10.0)
[2020-07-27 16:39] LABS: CALCIUM 8.6 mg/dL (8.5-10.1)
[2020-07-27 16:40] LABS: ALBUMIN 4.1 g/dl (3.4-5.0); BLOOD UREA NITROGEN 9.7 mg/dL (7-18)
[2020-07-27 16:43] LABS: CREATININE 0.7 mg/dL (0.55-1.3)
[2020-07-27 16:44] LABS: BILIRUBIN,TOTAL 0.6 mg/dL (0.2-1); TOT PROT 7.4 g/dl (6.4-8.2)
[2020-07-27] MEDS: diazePAM 5 MG TABLET PO SCH ×2 (17:28→22:49)
[2020-07-27] MEDS: hydrOXYzine PAMOATE 25 MG CAPSULE (FP) PO SCH ×2 (17:28→22:49)
[2020-07-27] MEDS: MELATONIN 5 MG TABLETS PO SCH (22:49)
[2020-07-27] MEDS: THIAMINE HCL 100 MG TABLET (FP) PO SCH (22:49)
[2020-07-28] MEDS: diazePAM 5 MG TABLET PO SCH ×4 (05:57→23:02)
[2020-07-28] MEDS: hydrOXYzine PAMOATE 25 MG CAPSULE (FP) PO SCH ×5 (05:57→23:02)
[2020-07-28] MEDS: PRENATAL VITAMINS W/ FOLIC ACID TABLET (FP) PO SCH (10:10)
[2020-07-28] MEDS ORDERED: METHADONE HCL 40 MG DISPERSABLE TABLET PO SCH (11:15)
[2020-07-28] MEDS ORDERED: METHADONE HCL 10 MG TABLET ONE (12:03)
[2020-07-28] MEDS ORDERED: METHADONE HCL 40 MG DISPERSABLE TABLET ONE (12:04)
[2020-07-28] MEDS: METHADONE 120 MG, METHADONE 30 MG PO SCH (12:05)
[2020-07-28] MEDS ORDERED: ALBUTEROL SO4 HFA INHALER IH ONE (16:41)
[2020-07-28] MEDS: ALBUTEROL SO4 HFA INHALER IH PRN (17:30)
[2020-07-28] MEDS: THIAMINE HCL 100 MG TABLET (FP) PO SCH (23:02)
[2020-07-28] MEDS: MELATONIN 5 MG TABLETS PO SCH (23:02)
[2020-07-28] MEDS: BUDESONIDE/FORMETEROL FUMARATE 80/4.5 mcg INHALER IH SCH (23:04)
[2020-07-29] MEDS ORDERED: METHADONE HCL 10 MG TABLET ONE (04:29)
[2020-07-29] MEDS ORDERED: METHADONE HCL 40 MG DISPERSABLE TABLET ONE (04:30)
[2020-07-29] MEDS: diazePAM 5 MG TABLET PO SCH ×3 (06:20→22:04)
[2020-07-29] MEDS: METHADONE 120 MG, METHADONE 30 MG PO SCH (06:21)
[2020-07-29] MEDS: hydrOXYzine PAMOATE 25 MG CAPSULE (FP) PO SCH ×5 (06:21→22:03)
[2020-07-29] MEDS: BUDESONIDE/FORMETEROL FUMARATE 80/4.5 mcg INHALER IH SCH ×2 (09:06→22:03)
[2020-07-29] MEDS: PRENATAL VITAMINS W/ FOLIC ACID TABLET (FP) PO SCH (09:06)
[2020-07-29] MEDS: ALBUTEROL SO4 HFA INHALER IH PRN (17:13)
[2020-07-29] MEDS: MELATONIN 5 MG TABLETS PO SCH (22:03)
[2020-07-29] MEDS: THIAMINE HCL 100 MG TABLET (FP) PO SCH (22:03)
[2020-07-29] MEDS: diazePAM 5 MG TABLET PO PRN (23:26)
[2020-07-30] MEDS ORDERED: METHADONE HCL 40 MG DISPERSABLE TABLET ONE (05:11)
[2020-07-30] MEDS ORDERED: METHADONE HCL 10 MG TABLET ONE (05:11)
[2020-07-30] MEDS: diazePAM 5 MG TABLET PO SCH ×2 (05:43→17:56)
[2020-07-30] MEDS: METHADONE 120 MG, METHADONE 30 MG PO SCH (05:43)
[2020-07-30] MEDS: hydrOXYzine PAMOATE 25 MG CAPSULE (FP) PO SCH ×5 (05:43→22:23)
[2020-07-30] MEDS: BUDESONIDE/FORMETEROL FUMARATE 80/4.5 mcg INHALER IH SCH ×2 (09:10→22:23)
[2020-07-30] MEDS: PRENATAL VITAMINS W/ FOLIC ACID TABLET (FP) PO SCH (09:10)
[2020-07-30] MEDS: diazePAM 5 MG TABLET PO PRN (09:11)
[2020-07-30 10:06] LABS: SARS-CoV-2 NAA Not Detected (Not Detected)
[2020-07-30] MEDS: ACETAMINOPHEN 325 MG TABLET (FP) PO PRN ×2 (13:30→22:24)
[2020-07-30] MEDS: THIAMINE HCL 100 MG TABLET (FP) PO SCH (22:23)
[2020-07-30] MEDS: MELATONIN 5 MG TABLETS PO SCH (22:23)
[2020-07-31] MEDS ORDERED: METHADONE HCL 10 MG TABLET ONE (03:37)
[2020-07-31] MEDS ORDERED: METHADONE HCL 40 MG DISPERSABLE TABLET ONE (03:37)
[2020-07-31] MEDS: hydrOXYzine PAMOATE 25 MG CAPSULE (FP) PO SCH ×3 (05:59→13:55)
[2020-07-31] MEDS ORDERED: diazePAM 5 MG TABLET PO ONE (06:00)
[2020-07-31] MEDS: METHADONE 120 MG, METHADONE 30 MG PO SCH (06:00)
[2020-07-31] MEDS: ACETAMINOPHEN 325 MG TABLET (FP) PO PRN (06:50)
[2020-07-31] MEDS: PRENATAL VITAMINS W/ FOLIC ACID TABLET (FP) PO SCH (10:55)
[2020-07-31] MEDS: BUDESONIDE/FORMETEROL FUMARATE 80/4.5 mcg INHALER IH SCH (10:56)
[2020-07-31 12:57] VITALS: BP 120/79; PULSE 97; TEMP 98.2
== END 2020-07-31 14:54 | disposition other institution (70) | DRG 773 ==
LOC: YASAS 12:35 → Y3N 15:22
PROVIDERS: ADMIT Allergy & Immunology; ATTEND Allergy & Immunology
PROC: HZ2ZZZZ Detoxification Services for Substance Abuse Treatment (ICD-10-PCS; principal; 2020-07-27)
DX: F13.230 Sedative, hypnotic or anxiolytic dependence with withdrawal, uncomplicated (principal); F11.20 Opioid dependence, uncomplicated; F14.20 Cocaine dependence, uncomplicated; G47.00 Insomnia, unspecified; J44.9 Chronic obstructive pulmonary disease, unspecified; J45.909 Unspecified asthma, uncomplicated; R45.89 Other symptoms and signs involving emotional state; R63.4 Abnormal weight loss; Z68.21 Body mass index [BMI] 21.0-21.9, adult
CPT/HCPCS: 36415; 80053; 85027; 86780; C9803; U0003; U0005

== ENCOUNTER 2020-07-31 15:11 | Inpatient (IN) | payer OTHER ==
[2020-07-31] MEDS ORDERED: MAG HYDROX/AL HYDROX/SIMETH 30 ML UNIT-DOSE CUP PO PRN (15:53)
[2020-07-31] MEDS ORDERED: MENTHOL/PHENOL 1 EACH UD MM PRN (15:53)
[2020-07-31] MEDS ORDERED: NICOTINE POLACRILEX 2 MG GUM BUC PRN (15:53)
[2020-07-31] MEDS ORDERED: guaiFENesin 200 MG/10 ML 10 ML UNIT-DOSE CUPS PO PRN (15:53)
[2020-07-31] MEDS ORDERED: P-EPHED 60MG/TRIPROLIDI 2.5MG TABLET PO PRN (15:53)
[2020-07-31] MEDS ORDERED: LOPERAMIDE HCL 2 MG CAPSULE PO PRN (15:53)
[2020-07-31] MEDS ORDERED: MAGNESIUM CITRATE 300 ML BOTTLE PO PRN (15:53)
[2020-07-31] MEDS ORDERED: IBUPROFEN 400 MG TABLET (FP) PO PRN (15:53)
[2020-07-31] MEDS ORDERED: MAGNESIUM HYDROX 2400MG/30ML ORAL SUSPENSION 30 ML CUP PO PRN (15:53)
[2020-07-31] MEDS: THIAMINE HCL 100 MG TABLET (FP) PO SCH (21:04)
[2020-07-31] MEDS: MELATONIN 5 MG TABLETS PO SCH (21:04)
[2020-07-31] MEDS: ACETAMINOPHEN 325 MG TABLET (FP) PO PRN (21:04)
[2020-07-31] MEDS: hydrOXYzine PAMOATE 25 MG CAPSULE (FP) PO PRN (21:05)
[2020-07-31] MEDS: BUDESONIDE/FORMETEROL FUMARATE 80/4.5 mcg INHALER IH SCH (21:06)
[2020-08-01] MEDS ORDERED: METHADONE HCL 40 MG DISPERSABLE TABLET ONE (04:06)
[2020-08-01] MEDS: ACETAMINOPHEN 325 MG TABLET (FP) PO PRN ×3 (04:07→19:08)
[2020-08-01] MEDS ORDERED: METHADONE HCL 10 MG TABLET ONE (04:07)
[2020-08-01] MEDS ORDERED: METHADONE HCL 10 MG TABLET PO SCH (06:00)
[2020-08-01] MEDS: METHADONE 120 MG, METHADONE 30 MG PO SCH (06:19)
[2020-08-01] MEDS: PRENATAL VITAMINS W/ FOLIC ACID TABLET (FP) PO SCH (10:36)
[2020-08-01] MEDS: hydrOXYzine PAMOATE 25 MG CAPSULE (FP) PO PRN ×2 (10:36→22:05)
[2020-08-01] MEDS: BUDESONIDE/FORMETEROL FUMARATE 80/4.5 mcg INHALER IH SCH ×2 (10:37→22:04)
[2020-08-01] MEDS: NICOTINE 7 MG/24 HOURS TOPICAL PATCH TD SCH (10:39)
[2020-08-01 10:57] LABS: HIV INTERPRETATION NEGATIVE (NEGATIVE)
[2020-08-01] MEDS: CLOTRIMAZOLE 1% CREAM 15 GM TUBE TP SCH ×2 (12:43→22:05)
[2020-08-01] MEDS ORDERED: MASKS NR ONE (19:09)
[2020-08-01] MEDS: THIAMINE HCL 100 MG TABLET (FP) PO SCH (22:04)
[2020-08-01] MEDS: MELATONIN 5 MG TABLETS PO SCH (22:04)
[2020-08-02] MEDS ORDERED: METHADONE HCL 10 MG TABLET ONE (03:05)
[2020-08-02] MEDS ORDERED: METHADONE HCL 40 MG DISPERSABLE TABLET ONE (03:05)
[2020-08-02] MEDS: METHADONE 120 MG, METHADONE 30 MG PO SCH (06:01)
[2020-08-02] MEDS: ACETAMINOPHEN 325 MG TABLET (FP) PO PRN ×2 (06:05→17:25)
[2020-08-02] MEDS: NICOTINE 7 MG/24 HOURS TOPICAL PATCH TD SCH (09:44)
[2020-08-02] MEDS: CLOTRIMAZOLE 1% CREAM 15 GM TUBE TP SCH ×2 (09:44→21:08)
[2020-08-02] MEDS: PRENATAL VITAMINS W/ FOLIC ACID TABLET (FP) PO SCH (09:44)
[2020-08-02] MEDS: BUDESONIDE/FORMETEROL FUMARATE 80/4.5 mcg INHALER IH SCH ×2 (09:45→21:08)
[2020-08-02] MEDS: hydrOXYzine PAMOATE 25 MG CAPSULE (FP) PO PRN ×3 (09:46→21:07)
[2020-08-02] MEDS: COLLOIDAL OATMEAL 1 BAR EACH TP PRN (09:46)
[2020-08-02] MEDS: MELATONIN 5 MG TABLETS PO SCH (21:07)
[2020-08-02] MEDS: THIAMINE HCL 100 MG TABLET (FP) PO SCH (21:07)
[2020-08-03] MEDS ORDERED: METHADONE HCL 10 MG TABLET ONE (03:02)
[2020-08-03] MEDS ORDERED: METHADONE HCL 40 MG DISPERSABLE TABLET ONE (03:02)
[2020-08-03] MEDS: METHADONE 120 MG, METHADONE 30 MG PO SCH (06:32)
[2020-08-03] MEDS: hydrOXYzine PAMOATE 25 MG CAPSULE (FP) PO PRN ×4 (06:33→21:42)
[2020-08-03] MEDS: NICOTINE 7 MG/24 HOURS TOPICAL PATCH TD SCH (09:40)
[2020-08-03] MEDS: CLOTRIMAZOLE 1% CREAM 15 GM TUBE TP SCH ×2 (09:40→21:43)
[2020-08-03] MEDS: PRENATAL VITAMINS W/ FOLIC ACID TABLET (FP) PO SCH (09:40)
[2020-08-03] MEDS: BUDESONIDE/FORMETEROL FUMARATE 80/4.5 mcg INHALER IH SCH ×2 (09:41→21:43)
[2020-08-03] MEDS: ACETAMINOPHEN 325 MG TABLET (FP) PO PRN ×2 (09:41→21:42)
[2020-08-03] MEDS: THIAMINE HCL 100 MG TABLET (FP) PO SCH (21:41)
[2020-08-03] MEDS: MELATONIN 5 MG TABLETS PO SCH (21:41)
[2020-08-04] MEDS ORDERED: METHADONE HCL 10 MG TABLET ONE (04:03)
[2020-08-04] MEDS ORDERED: METHADONE HCL 40 MG DISPERSABLE TABLET ONE (04:03)
[2020-08-04] MEDS: METHADONE 120 MG, METHADONE 30 MG PO SCH (05:44)
[2020-08-04 06:08] LABS: SARS-CoV-2 NAA Not Detected (Not Detected)
[2020-08-04] MEDS: BUDESONIDE/FORMETEROL FUMARATE 80/4.5 mcg INHALER IH SCH ×2 (09:26→21:10)
[2020-08-04] MEDS: PRENATAL VITAMINS W/ FOLIC ACID TABLET (FP) PO SCH (09:26)
[2020-08-04] MEDS: NICOTINE 7 MG/24 HOURS TOPICAL PATCH TD SCH (09:26)
[2020-08-04] MEDS: CLOTRIMAZOLE 1% CREAM 15 GM TUBE TP SCH ×2 (09:27→21:10)
[2020-08-04] MEDS: hydrOXYzine PAMOATE 25 MG CAPSULE (FP) PO PRN ×3 (09:27→21:09)
[2020-08-04] MEDS: MELATONIN 5 MG TABLETS PO SCH (21:09)
[2020-08-04] MEDS: THIAMINE HCL 100 MG TABLET (FP) PO SCH (21:09)
[2020-08-04] MEDS: ACETAMINOPHEN 325 MG TABLET (FP) PO PRN (21:10)
[2020-08-05] MEDS ORDERED: METHADONE HCL 40 MG DISPERSABLE TABLET ONE (03:07)
[2020-08-05] MEDS ORDERED: METHADONE HCL 10 MG TABLET ONE (03:07)
[2020-08-05] MEDS: METHADONE 120 MG, METHADONE 30 MG PO SCH (05:53)
[2020-08-05] MEDS: BUDESONIDE/FORMETEROL FUMARATE 80/4.5 mcg INHALER IH SCH ×2 (09:52→21:37)
[2020-08-05] MEDS: PRENATAL VITAMINS W/ FOLIC ACID TABLET (FP) PO SCH (09:52)
[2020-08-05] MEDS: CLOTRIMAZOLE 1% CREAM 15 GM TUBE TP SCH ×2 (09:52→21:37)
[2020-08-05] MEDS: NICOTINE 7 MG/24 HOURS TOPICAL PATCH TD SCH (09:52)
[2020-08-05] MEDS ORDERED: MASKS NR ONE (15:51)
[2020-08-05] MEDS: hydrOXYzine PAMOATE 25 MG CAPSULE (FP) PO PRN ×2 (18:15→22:29)
[2020-08-05] MEDS: MELATONIN 5 MG TABLETS PO SCH (21:36)
[2020-08-05] MEDS: THIAMINE HCL 100 MG TABLET (FP) PO SCH (21:36)
[2020-08-05] MEDS: ALBUTEROL SO4 HFA INHALER IH PRN (21:44)
[2020-08-06] MEDS ORDERED: METHADONE HCL 40 MG DISPERSABLE TABLET ONE (03:00)
[2020-08-06] MEDS ORDERED: METHADONE HCL 10 MG TABLET ONE (03:00)
[2020-08-06] MEDS: METHADONE 120 MG, METHADONE 30 MG PO SCH (05:54)
[2020-08-06] MEDS: PRENATAL VITAMINS W/ FOLIC ACID TABLET (FP) PO SCH (09:51)
[2020-08-06] MEDS: NICOTINE 7 MG/24 HOURS TOPICAL PATCH TD SCH (09:51)
[2020-08-06] MEDS: BUDESONIDE/FORMETEROL FUMARATE 80/4.5 mcg INHALER IH SCH ×2 (09:52→21:05)
[2020-08-06] MEDS: ALBUTEROL SO4 HFA INHALER IH PRN (09:52)
[2020-08-06] MEDS: hydrOXYzine PAMOATE 25 MG CAPSULE (FP) PO PRN ×3 (09:52→21:05)
[2020-08-06] MEDS: CLOTRIMAZOLE 1% CREAM 15 GM TUBE TP SCH ×2 (09:52→21:04)
[2020-08-06] MEDS: COLLOIDAL OATMEAL 1 BAR EACH TP PRN (14:51)
[2020-08-06] MEDS: MELATONIN 5 MG TABLETS PO SCH (21:04)
[2020-08-06] MEDS: THIAMINE HCL 100 MG TABLET (FP) PO SCH (21:05)
[2020-08-07] MEDS ORDERED: METHADONE HCL 10 MG TABLET ONE (03:05)
[2020-08-07] MEDS ORDERED: METHADONE HCL 40 MG DISPERSABLE TABLET ONE (03:05)
[2020-08-07] MEDS: METHADONE 120 MG, METHADONE 30 MG PO SCH (06:04)
[2020-08-07] MEDS: CLOTRIMAZOLE 1% CREAM 15 GM TUBE TP SCH ×2 (10:38→21:23)
[2020-08-07] MEDS: PRENATAL VITAMINS W/ FOLIC ACID TABLET (FP) PO SCH (10:38)
[2020-08-07] MEDS: NICOTINE 7 MG/24 HOURS TOPICAL PATCH TD SCH (10:38)
[2020-08-07] MEDS: BUDESONIDE/FORMETEROL FUMARATE 80/4.5 mcg INHALER IH SCH ×2 (10:39→21:23)
[2020-08-07] MEDS: hydrOXYzine PAMOATE 25 MG CAPSULE (FP) PO PRN ×3 (10:39→21:22)
[2020-08-07] MEDS: THIAMINE HCL 100 MG TABLET (FP) PO SCH (21:22)
[2020-08-07] MEDS: MELATONIN 5 MG TABLETS PO SCH (21:23)
[2020-08-08] MEDS ORDERED: METHADONE HCL 40 MG DISPERSABLE TABLET ONE (04:02)
[2020-08-08] MEDS ORDERED: METHADONE HCL 10 MG TABLET ONE (04:02)
[2020-08-08] MEDS: METHADONE 120 MG, METHADONE 30 MG PO SCH (06:04)
[2020-08-08] MEDS: PRENATAL VITAMINS W/ FOLIC ACID TABLET (FP) PO SCH (09:45)
[2020-08-08] MEDS: CLOTRIMAZOLE 1% CREAM 15 GM TUBE TP SCH (09:46)
[2020-08-08] MEDS: hydrOXYzine PAMOATE 25 MG CAPSULE (FP) PO PRN ×3 (09:46→21:12)
[2020-08-08] MEDS: BUDESONIDE/FORMETEROL FUMARATE 80/4.5 mcg INHALER IH SCH ×2 (09:48→21:12)
[2020-08-08] MEDS: NICOTINE 7 MG/24 HOURS TOPICAL PATCH TD SCH (09:48)
[2020-08-08] MEDS: MELATONIN 5 MG TABLETS PO SCH (21:12)
[2020-08-08] MEDS: THIAMINE HCL 100 MG TABLET (FP) PO SCH (21:12)
[2020-08-09] MEDS ORDERED: METHADONE HCL 40 MG DISPERSABLE TABLET ONE (03:10)
[2020-08-09] MEDS ORDERED: METHADONE HCL 10 MG TABLET ONE (03:10)
[2020-08-09] MEDS: METHADONE 120 MG, METHADONE 30 MG PO SCH (06:15)
[2020-08-09] MEDS ORDERED: SELENIUM SULFIDE 2.25% 180 ML SHAMPOO TP SCH (10:00)
[2020-08-09] MEDS: NICOTINE 7 MG/24 HOURS TOPICAL PATCH TD SCH (10:20)
[2020-08-09] MEDS: BUDESONIDE/FORMETEROL FUMARATE 80/4.5 mcg INHALER IH SCH ×2 (10:20→21:27)
[2020-08-09] MEDS: PRENATAL VITAMINS W/ FOLIC ACID TABLET (FP) PO SCH (10:20)
[2020-08-09] MEDS: SELENIUM SULFIDE 2.5% LOTION 4 OZ. TP SCH (10:21)
[2020-08-09] MEDS: hydrOXYzine PAMOATE 25 MG CAPSULE (FP) PO PRN ×3 (10:22→21:26)
[2020-08-09] MEDS: THIAMINE HCL 100 MG TABLET (FP) PO SCH (21:26)
[2020-08-09] MEDS: MELATONIN 5 MG TABLETS PO SCH (21:26)
[2020-08-10] MEDS ORDERED: METHADONE HCL 40 MG DISPERSABLE TABLET ONE (03:13)
[2020-08-10] MEDS ORDERED: METHADONE HCL 10 MG TABLET ONE (03:14)
[2020-08-10] MEDS: METHADONE 120 MG, METHADONE 30 MG PO SCH (06:21)
[2020-08-10] MEDS: PRENATAL VITAMINS W/ FOLIC ACID TABLET (FP) PO SCH (10:01)
[2020-08-10] MEDS: hydrOXYzine PAMOATE 25 MG CAPSULE (FP) PO PRN ×3 (10:01→21:27)
[2020-08-10] MEDS: SELENIUM SULFIDE 2.5% LOTION 4 OZ. TP SCH (10:02)
[2020-08-10] MEDS: BUDESONIDE/FORMETEROL FUMARATE 80/4.5 mcg INHALER IH SCH ×2 (10:02→21:28)
[2020-08-10] MEDS: NICOTINE 7 MG/24 HOURS TOPICAL PATCH TD SCH (10:02)
[2020-08-10] MEDS: MELATONIN 5 MG TABLETS PO SCH (21:27)
[2020-08-10] MEDS: THIAMINE HCL 100 MG TABLET (FP) PO SCH (21:28)
[2020-08-10] MEDS: COLLOIDAL OATMEAL 1 BAR EACH TP PRN (21:29)
[2020-08-11] MEDS ORDERED: METHADONE HCL 40 MG DISPERSABLE TABLET ONE (03:26)
[2020-08-11] MEDS ORDERED: METHADONE HCL 10 MG TABLET ONE (03:27)
[2020-08-11] MEDS: METHADONE 120 MG, METHADONE 30 MG PO SCH (05:53)
[2020-08-11] MEDS: PRENATAL VITAMINS W/ FOLIC ACID TABLET (FP) PO SCH (10:10)
[2020-08-11] MEDS: NICOTINE 7 MG/24 HOURS TOPICAL PATCH TD SCH (10:10)
[2020-08-11] MEDS: SELENIUM SULFIDE 2.5% LOTION 4 OZ. TP SCH (10:11)
[2020-08-11] MEDS: BUDESONIDE/FORMETEROL FUMARATE 80/4.5 mcg INHALER IH SCH ×2 (10:11→21:35)
[2020-08-11] MEDS: hydrOXYzine PAMOATE 25 MG CAPSULE (FP) PO PRN ×3 (10:12→21:35)
[2020-08-11] MEDS: MELATONIN 5 MG TABLETS PO SCH (21:35)
[2020-08-11] MEDS: THIAMINE HCL 100 MG TABLET (FP) PO SCH (21:35)
[2020-08-11] MEDS ORDERED: MASKS NR ONE (22:11)
[2020-08-12] MEDS ORDERED: METHADONE HCL 40 MG DISPERSABLE TABLET ONE (04:09)
[2020-08-12] MEDS ORDERED: METHADONE HCL 10 MG TABLET ONE (04:09)
[2020-08-12] MEDS: METHADONE 120 MG, METHADONE 30 MG PO SCH (06:11)
[2020-08-12] MEDS: PRENATAL VITAMINS W/ FOLIC ACID TABLET (FP) PO SCH (09:42)
[2020-08-12] MEDS: hydrOXYzine PAMOATE 25 MG CAPSULE (FP) PO PRN ×2 (09:42→21:21)
[2020-08-12] MEDS: BUDESONIDE/FORMETEROL FUMARATE 80/4.5 mcg INHALER IH SCH ×2 (09:42→21:45)
[2020-08-12] MEDS: NICOTINE 7 MG/24 HOURS TOPICAL PATCH TD SCH (09:42)
[2020-08-12] MEDS: SELENIUM SULFIDE 2.5% LOTION 4 OZ. TP SCH (09:42)
[2020-08-12] MEDS: THIAMINE HCL 100 MG TABLET (FP) PO SCH (21:20)
[2020-08-12] MEDS: MELATONIN 5 MG TABLETS PO SCH (21:21)
[2020-08-13] MEDS ORDERED: METHADONE HCL 10 MG TABLET ONE (03:14)
[2020-08-13] MEDS ORDERED: METHADONE HCL 40 MG DISPERSABLE TABLET ONE (03:14)
[2020-08-13] MEDS: METHADONE 120 MG, METHADONE 30 MG PO SCH (05:56)
[2020-08-13] MEDS: PRENATAL VITAMINS W/ FOLIC ACID TABLET (FP) PO SCH (09:56)
[2020-08-13] MEDS: hydrOXYzine PAMOATE 25 MG CAPSULE (FP) PO PRN ×3 (09:56→21:11)
[2020-08-13] MEDS: NICOTINE 7 MG/24 HOURS TOPICAL PATCH TD SCH (09:56)
[2020-08-13] MEDS: SELENIUM SULFIDE 2.5% LOTION 4 OZ. TP SCH (09:57)
[2020-08-13] MEDS: BUDESONIDE/FORMETEROL FUMARATE 80/4.5 mcg INHALER IH SCH ×2 (09:57→21:12)
[2020-08-13] MEDS ORDERED: COVID-19 VAC,AD26(JANSSEN)/PF 0.5 ML IM ONE (10:00)
[2020-08-13] MEDS: THIAMINE HCL 100 MG TABLET (FP) PO SCH (21:11)
[2020-08-13] MEDS: MELATONIN 5 MG TABLETS PO SCH (21:11)
[2020-08-14] MEDS ORDERED: METHADONE HCL 40 MG DISPERSABLE TABLET ONE (03:37)
[2020-08-14] MEDS ORDERED: METHADONE HCL 10 MG TABLET ONE (03:37)
[2020-08-14] MEDS: METHADONE 120 MG, METHADONE 30 MG PO SCH (06:03)
[2020-08-14] MEDS: ACETAMINOPHEN 325 MG TABLET (FP) PO PRN (06:06)
[2020-08-14 06:40] VITALS: BP 132/81; PULSE 89; TEMP 98.7
[2020-08-14] MEDS: hydrOXYzine PAMOATE 25 MG CAPSULE (FP) PO PRN (09:34)
[2020-08-14] MEDS: PRENATAL VITAMINS W/ FOLIC ACID TABLET (FP) PO SCH (09:34)
[2020-08-14] MEDS: NICOTINE 7 MG/24 HOURS TOPICAL PATCH TD SCH (09:36)
[2020-08-14] MEDS: SELENIUM SULFIDE 2.5% LOTION 4 OZ. TP SCH (09:36)
[2020-08-14] MEDS: BUDESONIDE/FORMETEROL FUMARATE 80/4.5 mcg INHALER IH SCH (09:36)
== END 2020-08-14 09:55 | disposition home or self-care (01) | DRG 772 ==
LOC: YASAS 15:11 → Y3W 15:13
PROVIDERS: ADMIT Allergy & Immunology; ATTEND Allergy & Immunology
PROC: HZ42ZZZ Group Counseling for Substance Abuse Treatment, Cognitive-Behavioral (ICD-10-PCS; principal; 2020-07-31)
DX: F10.20 Alcohol dependence, uncomplicated (principal); F11.20 Opioid dependence, uncomplicated; F14.20 Cocaine dependence, uncomplicated; F13.20 Sedative, hypnotic or anxiolytic dependence, uncomplicated; J44.9 Chronic obstructive pulmonary disease, unspecified; B36.0 Pityriasis versicolor; R63.4 Abnormal weight loss; Z68.23 Body mass index [BMI] 23.0-23.9, adult
CPT/HCPCS: 0031A; 36415; 87389; 91303; C9803; U0003; U0005

== ENCOUNTER 2021-09-27 13:56 | Inpatient (IN) | payer OTHER ==
[2021-09-27 15:37] VITALS: BMI 21.7
[2021-09-27] MEDS ORDERED: BENZOCAINE/MENTHOL (CHLORASEPTIC ) LOZENGE MM PRN (18:06)
[2021-09-27] MEDS ORDERED: ONDANSETRON *ODT* 4 MG TABLET SL PRN (18:06)
[2021-09-27] MEDS ORDERED: IBUPROFEN 600 MG TABLET (FP) PO PRN (18:06)
[2021-09-27] MEDS ORDERED: MAGNESIUM HYDROX 2400MG/30ML ORAL SUSPENSION 30 ML CUP PO PRN (18:06)
[2021-09-27] MEDS ORDERED: MAG HYDROX/AL HYDROX/SIMETH 30 ML UNIT-DOSE CUP PO PRN (18:06)
[2021-09-27] MEDS ORDERED: LOPERAMIDE HCL 2 MG CAPSULE PO PRN (18:06)
[2021-09-27] MEDS ORDERED: BISMUTH SUBSALICYLATE 524 MG/30 ML PO PRN (18:06)
[2021-09-27] MEDS ORDERED: DICYCLOMINE HCL 10 MG CAPSULE PO PRN (18:06)
[2021-09-27] MEDS ORDERED: IBUPROFEN 400 MG TABLET (FP) PO PRN (18:06)
[2021-09-27] MEDS ORDERED: MAGNESIUM CITRATE 300 ML BOTTLE PO PRN (18:06)
[2021-09-27] MEDS ORDERED: ACETAMINOPHEN 325 MG TABLET (FP) PO PRN ×2 (18:06)
[2021-09-27] MEDS: diazePAM 5 MG TABLET PO SCH (23:24)
[2021-09-27] MEDS: hydrOXYzine PAMOATE 25 MG CAPSULE (FP) PO SCH (23:25)
[2021-09-27] MEDS: MELATONIN 5 MG TABLETS PO SCH (23:25)
[2021-09-27] MEDS: THIAMINE HCL 100 MG TABLET (FP) PO SCH (23:25)
[2021-09-28] MEDS: diazePAM 5 MG TABLET PO SCH ×4 (06:01→22:48)
[2021-09-28] MEDS: hydrOXYzine PAMOATE 25 MG CAPSULE (FP) PO SCH ×5 (06:02→22:48)
[2021-09-28] MEDS: METHOCARBAMOL 500 MG TABLET PO PRN ×2 (06:02→18:11)
[2021-09-28 08:57] LABS: ALBUMIN 3.5 g/dl (3.4-5.0)
[2021-09-28 08:58] LABS: CALCIUM 8.8 mg/dL (8.5-10.1)
[2021-09-28 08:59] LABS: HEMATOCRIT 39.3 % (32.4-45.2); HEMOGLOBIN 12.8 GM/dL (10.7-15.3); MCH 27.8 pg (25.7-33.7); MCHC 32.5 g/dl (32.0-36.0); MEAN CELL VOLUME 85.7 fl (80-96); MEAN PLT VOLUME 8.6 fl (7.5-11.1); PLATELET COUNT 270 10^3/uL (134-434); RBC 4.58 M/mm3 (3.60-5.2); RDW 14.4 % (11.6-15.6); WHITE BLOOD COUNT 5.2 K/mm3 (4.0-10.0)
[2021-09-28 09:00] LABS: CREATININE 0.6 mg/dL (0.55-1.3)
[2021-09-28 09:02] LABS: BILIRUBIN,TOTAL 0.6 mg/dL (0.2-1); TOT PROT 6.7 g/dl (6.4-8.2)
[2021-09-28] MEDS: PRENATAL VITAMINS W/ FOLIC ACID TABLET (FP) PO SCH (10:57)
[2021-09-28] MEDS: methaDONE HCL 10 MG TABLET PO SCH (12:01)
[2021-09-28] MEDS: diazePAM 5 MG TABLET PO PRN ×2 (13:53→20:39)
[2021-09-28] MEDS: ALBUTEROL SO4 HFA INHALER IH PRN ×2 (20:39→22:48)
[2021-09-28] MEDS: THIAMINE HCL 100 MG TABLET (FP) PO SCH (22:48)
[2021-09-28] MEDS: MELATONIN 5 MG TABLETS PO SCH (22:48)
[2021-09-29] MEDS: methaDONE HCL 10 MG TABLET PO SCH (05:59)
[2021-09-29] MEDS: hydrOXYzine PAMOATE 25 MG CAPSULE (FP) PO SCH ×5 (05:59→22:49)
[2021-09-29] MEDS: diazePAM 5 MG TABLET PO SCH ×3 (05:59→22:49)
[2021-09-29] MEDS ORDERED: methaDONE HCL 40 MG DISPERSABLE TABLET PO ONE (10:07)
[2021-09-29] MEDS: PRENATAL VITAMINS W/ FOLIC ACID TABLET (FP) PO SCH (10:27)
[2021-09-29] MEDS: METHOCARBAMOL 500 MG TABLET PO PRN (10:28)
[2021-09-29] MEDS: ALBUTEROL SO4 HFA INHALER IH PRN (17:29)
[2021-09-29] MEDS: diazePAM 5 MG TABLET PO PRN (20:14)
[2021-09-29] MEDS: THIAMINE HCL 100 MG TABLET (FP) PO SCH (22:49)
[2021-09-29] MEDS: MELATONIN 5 MG TABLETS PO SCH (22:50)
[2021-09-30] MEDS ORDERED: methaDONE HCL 10 MG TABLET ONE (04:33)
[2021-09-30] MEDS ORDERED: methaDONE HCL 40 MG DISPERSABLE TABLET ONE (04:33)
[2021-09-30] MEDS: diazePAM 5 MG TABLET PO SCH ×2 (05:54→17:47)
[2021-09-30] MEDS: hydrOXYzine PAMOATE 25 MG CAPSULE (FP) PO SCH ×5 (05:54→22:23)
[2021-09-30] MEDS: ALBUTEROL SO4 HFA INHALER IH PRN ×3 (05:55→19:27)
[2021-09-30] MEDS ORDERED: methaDONE HCL 10 MG TABLET PO SCH (06:00)
[2021-09-30] MEDS: PRENATAL VITAMINS W/ FOLIC ACID TABLET (FP) PO SCH (10:32)
[2021-09-30] MEDS: THIAMINE HCL 100 MG TABLET (FP) PO SCH (22:23)
[2021-09-30] MEDS: MELATONIN 5 MG TABLETS PO SCH (22:23)
[2021-09-30] MEDS: CLOTRIMAZOLE/BETAMET DIPROP TOPICAL CREAM 45 GM TUBE TP SCH (22:25)
[2021-10-01] MEDS ORDERED: methaDONE HCL 40 MG DISPERSABLE TABLET ONE (03:50)
[2021-10-01] MEDS ORDERED: methaDONE HCL 10 MG TABLET ONE (03:50)
[2021-10-01] MEDS: hydrOXYzine PAMOATE 25 MG CAPSULE (FP) PO SCH ×4 (05:50→18:39)
[2021-10-01] MEDS ORDERED: diazePAM 5 MG TABLET PO ONE ×2 (06:00→22:00)
[2021-10-01] MEDS: ALBUTEROL SO4 HFA INHALER IH PRN ×3 (10:47→19:20)
[2021-10-01] MEDS: METHOCARBAMOL 500 MG TABLET PO PRN (10:47)
[2021-10-01] MEDS: CLOTRIMAZOLE/BETAMET DIPROP TOPICAL CREAM 45 GM TUBE TP SCH (10:47)
[2021-10-01] MEDS: PRENATAL VITAMINS W/ FOLIC ACID TABLET (FP) PO SCH (10:47)
[2021-10-01 17:05] VITALS: BP 132/78; PULSE 92; RESP 17; TEMP 96.9
[2021-10-01] MEDS ORDERED: SUVOREXANT 10 MG TABLET PO PRN (22:00)
[2021-10-02] MEDS ORDERED: diazePAM 5 MG TABLET PO ONE (06:00)
== END 2021-10-01 20:30 | disposition other institution (70) | DRG 773 ==
LOC: YASAS 13:56 → Y6N 22:44
PROVIDERS: ADMIT Allergy & Immunology; ATTEND Surgery
PROC: HZ2ZZZZ Detoxification Services for Substance Abuse Treatment (ICD-10-PCS; principal; 2021-09-27)
DX: F10.230 Alcohol dependence with withdrawal, uncomplicated (principal); F11.20 Opioid dependence, uncomplicated; F13.230 Sedative, hypnotic or anxiolytic dependence with withdrawal, uncomplicated; F14.10 Cocaine abuse, uncomplicated; F17.210 Nicotine dependence, cigarettes, uncomplicated; F19.280 Other psychoactive substance dependence with psychoactive substance-induced anxiety disorder; F19.282 Other psychoactive substance dependence with psychoactive substance-induced sleep disorder; F33.41 Major depressive disorder, recurrent, in partial remission; F41.9 Anxiety disorder, unspecified; F42.9 Obsessive-compulsive disorder, unspecified; G47.00 Insomnia, unspecified; J44.1 Chronic obstructive pulmonary disease with (acute) exacerbation; R45.89 Other symptoms and signs involving emotional state; R63.4 Abnormal weight loss; Z68.21 Body mass index [BMI] 21.0-21.9, adult
CPT/HCPCS: 36415; 80053; 81025; 85027; 86780; 87811; C9803-CS; U0003; U0005

== ENCOUNTER 2021-10-01 17:10 | Inpatient (IN) | payer OTHER ==
[2021-10-01] MEDS ORDERED: P-EPHED 60MG/TRIPROLIDI 2.5MG TABLET PO PRN (23:28)
[2021-10-01] MEDS ORDERED: MELATONIN 5 MG TABLETS PO PRN (23:28)
[2021-10-01] MEDS ORDERED: MAGNESIUM HYDROX 2400MG/30ML ORAL SUSPENSION 30 ML CUP PO PRN (23:28)
[2021-10-01] MEDS ORDERED: LOPERAMIDE HCL 2 MG CAPSULE PO PRN (23:28)
[2021-10-01] MEDS ORDERED: guaiFENesin 200 MG/10 ML 10 ML UNIT-DOSE CUPS PO PRN (23:28)
[2021-10-01] MEDS ORDERED: BENZOCAINE/MENTHOL (CHLORASEPTIC ) LOZENGE MM PRN (23:28)
[2021-10-01] MEDS ORDERED: IBUPROFEN 400 MG TABLET (FP) PO PRN (23:28)
[2021-10-01] MEDS ORDERED: ACETAMINOPHEN 325 MG TABLET (FP) PO PRN (23:28)
[2021-10-01] MEDS ORDERED: MAGNESIUM CITRATE 300 ML BOTTLE PO PRN (23:28)
[2021-10-02] MEDS: ALBUTEROL SO4 HFA INHALER IH PRN ×3 (00:38→22:10)
[2021-10-02] MEDS: BUDESONIDE/FORMETEROL FUMARATE 80/4.5 mcg INHALER IH SCH ×3 (00:53→21:29)
[2021-10-02] MEDS ORDERED: methaDONE HCL 40 MG DISPERSABLE TABLET ONE (04:23)
[2021-10-02] MEDS ORDERED: methaDONE HCL 10 MG TABLET ONE (04:23)
[2021-10-02] MEDS ORDERED: methaDONE HCL 40 MG DISPERSABLE TABLET PO SCH (06:00)
[2021-10-02] MEDS: MAG HYDROX/AL HYDROX/SIMETH 30 ML UNIT-DOSE CUP PO PRN (07:11)
[2021-10-02] MEDS: PRENATAL VITAMINS W/ FOLIC ACID TABLET (FP) PO SCH (09:25)
[2021-10-02] MEDS: CLOTRIMAZOLE/BETAMET DIPROP TOPICAL CREAM 45 GM TUBE TP SCH ×3 (10:40→21:28)
[2021-10-02] MEDS: MINERAL OIL/PETROLAT/WATER TOPICAL CREAM 113 GM JAR TP SCH (15:11)
[2021-10-02] MEDS: THIAMINE HCL 100 MG TABLET (FP) PO SCH (21:28)
[2021-10-02] MEDS: SUVOREXANT 10 MG TABLET PO PRN (21:31)
[2021-10-02] MEDS: COLLOIDAL OATMEAL 1 BAR EACH TP PRN (21:31)
[2021-10-03] MEDS ORDERED: methaDONE HCL 10 MG TABLET ONE (06:24)
[2021-10-03] MEDS ORDERED: methaDONE HCL 40 MG DISPERSABLE TABLET ONE (06:24)
[2021-10-03] MEDS: PRENATAL VITAMINS W/ FOLIC ACID TABLET (FP) PO SCH (10:26)
[2021-10-03] MEDS: BUDESONIDE/FORMETEROL FUMARATE 80/4.5 mcg INHALER IH SCH ×2 (10:26→21:53)
[2021-10-03] MEDS: MINERAL OIL/PETROLAT/WATER TOPICAL CREAM 113 GM JAR TP SCH (10:27)
[2021-10-03] MEDS: CLOTRIMAZOLE/BETAMET DIPROP TOPICAL CREAM 45 GM TUBE TP SCH ×2 (10:27→21:33)
[2021-10-03] MEDS: SUVOREXANT 10 MG TABLET PO PRN (21:35)
[2021-10-03] MEDS: THIAMINE HCL 100 MG TABLET (FP) PO SCH (21:35)
[2021-10-03] MEDS: ALBUTEROL SO4 HFA INHALER IH PRN (21:36)
[2021-10-04] MEDS ORDERED: methaDONE HCL 10 MG TABLET ONE (03:39)
[2021-10-04] MEDS ORDERED: methaDONE HCL 40 MG DISPERSABLE TABLET ONE (03:39)
[2021-10-04] MEDS: CLOTRIMAZOLE/BETAMET DIPROP TOPICAL CREAM 45 GM TUBE TP SCH ×2 (10:34→21:50)
[2021-10-04] MEDS: PRENATAL VITAMINS W/ FOLIC ACID TABLET (FP) PO SCH (10:34)
[2021-10-04] MEDS: BUDESONIDE/FORMETEROL FUMARATE 80/4.5 mcg INHALER IH SCH ×2 (10:34→21:42)
[2021-10-04] MEDS: MINERAL OIL/PETROLAT/WATER TOPICAL CREAM 113 GM JAR TP SCH (10:34)
[2021-10-04] MEDS: hydrOXYzine PAMOATE 25 MG CAPSULE (FP) PO PRN (17:53)
[2021-10-04] MEDS: SUVOREXANT 10 MG TABLET PO PRN (21:43)
[2021-10-04] MEDS: ALBUTEROL SO4 HFA INHALER IH PRN (21:43)
[2021-10-04] MEDS: THIAMINE HCL 100 MG TABLET (FP) PO SCH (21:44)
[2021-10-05] MEDS ORDERED: methaDONE HCL 10 MG TABLET ONE (05:32)
[2021-10-05] MEDS ORDERED: methaDONE HCL 40 MG DISPERSABLE TABLET ONE (05:32)
[2021-10-05] MEDS: hydrOXYzine PAMOATE 25 MG CAPSULE (FP) PO PRN ×3 (06:07→19:24)
[2021-10-05] MEDS: MINERAL OIL/PETROLAT/WATER TOPICAL CREAM 113 GM JAR TP SCH (09:58)
[2021-10-05] MEDS: CLOTRIMAZOLE/BETAMET DIPROP TOPICAL CREAM 45 GM TUBE TP SCH ×2 (09:58→21:24)
[2021-10-05] MEDS: PRENATAL VITAMINS W/ FOLIC ACID TABLET (FP) PO SCH (09:59)
[2021-10-05] MEDS: BUDESONIDE/FORMETEROL FUMARATE 80/4.5 mcg INHALER IH SCH ×2 (11:35→21:23)
[2021-10-05] MEDS: SUVOREXANT 10 MG TABLET PO PRN (21:23)
[2021-10-05] MEDS: ALBUTEROL SO4 HFA INHALER IH PRN (21:23)
[2021-10-05] MEDS: THIAMINE HCL 100 MG TABLET (FP) PO SCH (21:23)
[2021-10-06] MEDS ORDERED: methaDONE HCL 10 MG TABLET ONE (02:59)
[2021-10-06] MEDS ORDERED: methaDONE HCL 40 MG DISPERSABLE TABLET ONE (03:00)
[2021-10-06] MEDS: hydrOXYzine PAMOATE 25 MG CAPSULE (FP) PO PRN ×2 (06:06→21:51)
[2021-10-06] MEDS: BUDESONIDE/FORMETEROL FUMARATE 80/4.5 mcg INHALER IH SCH ×2 (10:59→21:51)
[2021-10-06] MEDS: PRENATAL VITAMINS W/ FOLIC ACID TABLET (FP) PO SCH (10:59)
[2021-10-06] MEDS: MINERAL OIL/PETROLAT/WATER TOPICAL CREAM 113 GM JAR TP SCH (10:59)
[2021-10-06] MEDS: CLOTRIMAZOLE/BETAMET DIPROP TOPICAL CREAM 45 GM TUBE TP SCH ×2 (10:59→21:51)
[2021-10-06] MEDS: ALBUTEROL SO4 HFA INHALER IH PRN (21:50)
[2021-10-06] MEDS: THIAMINE HCL 100 MG TABLET (FP) PO SCH (21:51)
[2021-10-06] MEDS: SUVOREXANT 10 MG TABLET PO PRN (21:51)
[2021-10-07] MEDS ORDERED: methaDONE HCL 10 MG TABLET ONE (03:51)
[2021-10-07] MEDS ORDERED: methaDONE HCL 40 MG DISPERSABLE TABLET ONE (03:51)
[2021-10-07] MEDS: PRENATAL VITAMINS W/ FOLIC ACID TABLET (FP) PO SCH (10:25)
[2021-10-07] MEDS: MINERAL OIL/PETROLAT/WATER TOPICAL CREAM 113 GM JAR TP SCH (10:25)
[2021-10-07] MEDS: CLOTRIMAZOLE/BETAMET DIPROP TOPICAL CREAM 45 GM TUBE TP SCH ×2 (10:26→21:57)
[2021-10-07] MEDS: hydrOXYzine PAMOATE 25 MG CAPSULE (FP) PO PRN ×2 (10:26→21:58)
[2021-10-07] MEDS: BUDESONIDE/FORMETEROL FUMARATE 80/4.5 mcg INHALER IH SCH ×2 (10:26→21:58)
[2021-10-07] MEDS: THIAMINE HCL 100 MG TABLET (FP) PO SCH (21:58)
[2021-10-07] MEDS: ALBUTEROL SO4 HFA INHALER IH PRN (21:58)
[2021-10-07] MEDS: SUVOREXANT 10 MG TABLET PO PRN (22:00)
[2021-10-08] MEDS ORDERED: methaDONE HCL 10 MG TABLET ONE (03:52)
[2021-10-08] MEDS ORDERED: methaDONE HCL 40 MG DISPERSABLE TABLET ONE (03:52)
[2021-10-08] MEDS: hydrOXYzine PAMOATE 25 MG CAPSULE (FP) PO PRN ×2 (06:27→21:45)
[2021-10-08] MEDS: CLOTRIMAZOLE/BETAMET DIPROP TOPICAL CREAM 45 GM TUBE TP SCH ×2 (10:39→21:44)
[2021-10-08] MEDS: MINERAL OIL/PETROLAT/WATER TOPICAL CREAM 113 GM JAR TP SCH (10:39)
[2021-10-08] MEDS: PRENATAL VITAMINS W/ FOLIC ACID TABLET (FP) PO SCH (10:39)
[2021-10-08] MEDS: BUDESONIDE/FORMETEROL FUMARATE 80/4.5 mcg INHALER IH SCH ×2 (10:39→21:44)
[2021-10-08] MEDS: THIAMINE HCL 100 MG TABLET (FP) PO SCH (21:43)
[2021-10-08] MEDS: SUVOREXANT 10 MG TABLET PO PRN (21:43)
[2021-10-08] MEDS: ALBUTEROL SO4 HFA INHALER IH PRN (21:44)
[2021-10-09] MEDS: hydrOXYzine PAMOATE 25 MG CAPSULE (FP) PO PRN ×2 (07:12→21:40)
[2021-10-09] MEDS: PRENATAL VITAMINS W/ FOLIC ACID TABLET (FP) PO SCH (10:34)
[2021-10-09] MEDS: COLLOIDAL OATMEAL 1 BAR EACH TP PRN (10:34)
[2021-10-09] MEDS: BUDESONIDE/FORMETEROL FUMARATE 80/4.5 mcg INHALER IH SCH ×2 (10:35→21:52)
[2021-10-09] MEDS: CLOTRIMAZOLE/BETAMET DIPROP TOPICAL CREAM 45 GM TUBE TP SCH ×2 (10:35→21:51)
[2021-10-09] MEDS: MINERAL OIL/PETROLAT/WATER TOPICAL CREAM 113 GM JAR TP SCH (10:35)
[2021-10-09] MEDS: THIAMINE HCL 100 MG TABLET (FP) PO SCH (21:40)
[2021-10-09] MEDS: ALBUTEROL SO4 HFA INHALER IH PRN (21:40)
[2021-10-09] MEDS: SUVOREXANT 10 MG TABLET PO PRN (21:40)
[2021-10-10] MEDS: ALBUTEROL SO4 HFA INHALER IH PRN ×2 (03:27→21:28)
[2021-10-10] MEDS: PRENATAL VITAMINS W/ FOLIC ACID TABLET (FP) PO SCH (09:45)
[2021-10-10] MEDS: hydrOXYzine PAMOATE 25 MG CAPSULE (FP) PO PRN ×2 (09:45→21:29)
[2021-10-10] MEDS: MINERAL OIL/PETROLAT/WATER TOPICAL CREAM 113 GM JAR TP SCH (09:46)
[2021-10-10] MEDS: CLOTRIMAZOLE/BETAMET DIPROP TOPICAL CREAM 45 GM TUBE TP SCH ×2 (09:46→21:29)
[2021-10-10] MEDS: BUDESONIDE/FORMETEROL FUMARATE 80/4.5 mcg INHALER IH SCH ×2 (09:46→21:29)
[2021-10-10] MEDS: THIAMINE HCL 100 MG TABLET (FP) PO SCH (21:28)
[2021-10-10] MEDS: SUVOREXANT 10 MG TABLET PO PRN (21:28)
[2021-10-11] MEDS: CLOTRIMAZOLE/BETAMET DIPROP TOPICAL CREAM 45 GM TUBE TP SCH ×2 (10:20→21:25)
[2021-10-11] MEDS: PRENATAL VITAMINS W/ FOLIC ACID TABLET (FP) PO SCH (10:20)
[2021-10-11] MEDS: MINERAL OIL/PETROLAT/WATER TOPICAL CREAM 113 GM JAR TP SCH (10:20)
[2021-10-11] MEDS: BUDESONIDE/FORMETEROL FUMARATE 80/4.5 mcg INHALER IH SCH ×2 (10:21→21:20)
[2021-10-11] MEDS: hydrOXYzine PAMOATE 25 MG CAPSULE (FP) PO PRN ×2 (10:21→21:20)
[2021-10-11] MEDS: THIAMINE HCL 100 MG TABLET (FP) PO SCH (21:20)
[2021-10-11] MEDS: SUVOREXANT 10 MG TABLET PO PRN (21:23)
[2021-10-11] MEDS: ALBUTEROL SO4 HFA INHALER IH PRN (21:37)
[2021-10-12] MEDS: hydrOXYzine PAMOATE 25 MG CAPSULE (FP) PO PRN ×2 (09:51→21:46)
[2021-10-12] MEDS: PRENATAL VITAMINS W/ FOLIC ACID TABLET (FP) PO SCH (09:51)
[2021-10-12] MEDS: MINERAL OIL/PETROLAT/WATER TOPICAL CREAM 113 GM JAR TP SCH (09:51)
[2021-10-12] MEDS: BUDESONIDE/FORMETEROL FUMARATE 80/4.5 mcg INHALER IH SCH ×2 (09:52→21:45)
[2021-10-12] MEDS: CLOTRIMAZOLE/BETAMET DIPROP TOPICAL CREAM 45 GM TUBE TP SCH ×2 (09:52→21:45)
[2021-10-12] MEDS: THIAMINE HCL 100 MG TABLET (FP) PO SCH (21:44)
[2021-10-12] MEDS: ALBUTEROL SO4 HFA INHALER IH PRN (21:44)
[2021-10-12] MEDS: SUVOREXANT 10 MG TABLET PO PRN (21:46)
[2021-10-13] MEDS: BUDESONIDE/FORMETEROL FUMARATE 80/4.5 mcg INHALER IH SCH ×2 (09:52→21:42)
[2021-10-13] MEDS: PRENATAL VITAMINS W/ FOLIC ACID TABLET (FP) PO SCH (09:52)
[2021-10-13] MEDS: MINERAL OIL/PETROLAT/WATER TOPICAL CREAM 113 GM JAR TP SCH (09:52)
[2021-10-13] MEDS: CLOTRIMAZOLE/BETAMET DIPROP TOPICAL CREAM 45 GM TUBE TP SCH ×2 (09:53→21:45)
[2021-10-13] MEDS: hydrOXYzine PAMOATE 25 MG CAPSULE (FP) PO PRN ×2 (09:53→21:45)
[2021-10-13] MEDS: SUVOREXANT 10 MG TABLET PO PRN (21:44)
[2021-10-13] MEDS: THIAMINE HCL 100 MG TABLET (FP) PO SCH (21:45)
[2021-10-14] MEDS: PRENATAL VITAMINS W/ FOLIC ACID TABLET (FP) PO SCH (10:37)
[2021-10-14] MEDS: CLOTRIMAZOLE/BETAMET DIPROP TOPICAL CREAM 45 GM TUBE TP SCH ×2 (10:37→21:42)
[2021-10-14] MEDS: BUDESONIDE/FORMETEROL FUMARATE 80/4.5 mcg INHALER IH SCH ×2 (10:38→21:43)
[2021-10-14] MEDS: MINERAL OIL/PETROLAT/WATER TOPICAL CREAM 113 GM JAR TP SCH (10:38)
[2021-10-14] MEDS: hydrOXYzine PAMOATE 25 MG CAPSULE (FP) PO PRN ×2 (10:38→21:22)
[2021-10-14] MEDS: SUVOREXANT 10 MG TABLET PO PRN (21:21)
[2021-10-14] MEDS: THIAMINE HCL 100 MG TABLET (FP) PO SCH (21:21)
[2021-10-15] MEDS: MINERAL OIL/PETROLAT/WATER TOPICAL CREAM 113 GM JAR TP SCH (10:39)
[2021-10-15] MEDS: PRENATAL VITAMINS W/ FOLIC ACID TABLET (FP) PO SCH (10:39)
[2021-10-15] MEDS: CLOTRIMAZOLE/BETAMET DIPROP TOPICAL CREAM 45 GM TUBE TP SCH ×2 (10:39→21:34)
[2021-10-15] MEDS: BUDESONIDE/FORMETEROL FUMARATE 80/4.5 mcg INHALER IH SCH ×2 (10:40→21:23)
[2021-10-15] MEDS: hydrOXYzine PAMOATE 25 MG CAPSULE (FP) PO PRN (10:40)
[2021-10-15] MEDS: ALBUTEROL SO4 HFA INHALER IH PRN ×2 (10:40→21:24)
[2021-10-15] MEDS: SUVOREXANT 10 MG TABLET PO PRN (21:22)
[2021-10-15] MEDS: THIAMINE HCL 100 MG TABLET (FP) PO SCH (21:22)
[2021-10-16] MEDS ORDERED: methaDONE HCL 10 MG TABLET PO SCH (06:00)
[2021-10-16] MEDS: PRENATAL VITAMINS W/ FOLIC ACID TABLET (FP) PO SCH (10:03)
[2021-10-16] MEDS: hydrOXYzine PAMOATE 25 MG CAPSULE (FP) PO PRN ×2 (10:03→21:31)
[2021-10-16] MEDS: MINERAL OIL/PETROLAT/WATER TOPICAL CREAM 113 GM JAR TP SCH (10:04)
[2021-10-16] MEDS: BUDESONIDE/FORMETEROL FUMARATE 80/4.5 mcg INHALER IH SCH ×2 (10:04→21:30)
[2021-10-16] MEDS: CLOTRIMAZOLE/BETAMET DIPROP TOPICAL CREAM 45 GM TUBE TP SCH ×2 (10:04→21:45)
[2021-10-16] MEDS: COLLOIDAL OATMEAL 1 BAR EACH TP PRN (10:05)
[2021-10-16] MEDS: THIAMINE HCL 100 MG TABLET (FP) PO SCH (21:30)
[2021-10-16] MEDS: ALBUTEROL SO4 HFA INHALER IH PRN (21:30)
[2021-10-16] MEDS: SUVOREXANT 10 MG TABLET PO PRN (21:30)
[2021-10-17] MEDS: CLOTRIMAZOLE/BETAMET DIPROP TOPICAL CREAM 45 GM TUBE TP SCH ×2 (10:31→21:31)
[2021-10-17] MEDS: PRENATAL VITAMINS W/ FOLIC ACID TABLET (FP) PO SCH (10:31)
[2021-10-17] MEDS: MINERAL OIL/PETROLAT/WATER TOPICAL CREAM 113 GM JAR TP SCH (10:31)
[2021-10-17] MEDS: BUDESONIDE/FORMETEROL FUMARATE 80/4.5 mcg INHALER IH SCH ×2 (10:32→21:31)
[2021-10-17] MEDS: hydrOXYzine PAMOATE 25 MG CAPSULE (FP) PO PRN ×2 (10:32→21:32)
[2021-10-17] MEDS: ALBUTEROL SO4 HFA INHALER IH PRN (21:31)
[2021-10-17] MEDS: SUVOREXANT 10 MG TABLET PO PRN (21:32)
[2021-10-17] MEDS: THIAMINE HCL 100 MG TABLET (FP) PO SCH (21:32)
[2021-10-18] MEDS: PRENATAL VITAMINS W/ FOLIC ACID TABLET (FP) PO SCH (10:48)
[2021-10-18] MEDS: hydrOXYzine PAMOATE 25 MG CAPSULE (FP) PO PRN ×2 (10:48→21:21)
[2021-10-18] MEDS: ALBUTEROL SO4 HFA INHALER IH PRN (10:49)
[2021-10-18] MEDS: CLOTRIMAZOLE/BETAMET DIPROP TOPICAL CREAM 45 GM TUBE TP SCH ×2 (10:49→21:17)
[2021-10-18] MEDS: BUDESONIDE/FORMETEROL FUMARATE 80/4.5 mcg INHALER IH SCH ×2 (10:49→21:17)
[2021-10-18] MEDS: MINERAL OIL/PETROLAT/WATER TOPICAL CREAM 113 GM JAR TP SCH (10:50)
[2021-10-18] MEDS: THIAMINE HCL 100 MG TABLET (FP) PO SCH (21:18)
[2021-10-18] MEDS: MAG HYDROX/AL HYDROX/SIMETH 30 ML UNIT-DOSE CUP PO PRN (21:20)
[2021-10-18] MEDS: SUVOREXANT 10 MG TABLET PO PRN (21:20)
[2021-10-19] MEDS: PRENATAL VITAMINS W/ FOLIC ACID TABLET (FP) PO SCH (10:52)
[2021-10-19] MEDS: BUDESONIDE/FORMETEROL FUMARATE 80/4.5 mcg INHALER IH SCH ×2 (10:52→21:48)
[2021-10-19] MEDS: MINERAL OIL/PETROLAT/WATER TOPICAL CREAM 113 GM JAR TP SCH (10:52)
[2021-10-19] MEDS: CLOTRIMAZOLE/BETAMET DIPROP TOPICAL CREAM 45 GM TUBE TP SCH ×2 (10:52→22:01)
[2021-10-19] MEDS: hydrOXYzine PAMOATE 25 MG CAPSULE (FP) PO PRN (10:53)
[2021-10-19] MEDS: ALBUTEROL SO4 HFA INHALER IH PRN (21:48)
[2021-10-19] MEDS: SUVOREXANT 10 MG TABLET PO PRN (21:49)
[2021-10-19] MEDS: THIAMINE HCL 100 MG TABLET (FP) PO SCH (21:49)
[2021-10-20 08:14] VITALS: RESP 18
[2021-10-20] MEDS: PRENATAL VITAMINS W/ FOLIC ACID TABLET (FP) PO SCH (10:22)
[2021-10-20] MEDS: BUDESONIDE/FORMETEROL FUMARATE 80/4.5 mcg INHALER IH SCH ×2 (10:22→21:38)
[2021-10-20] MEDS: CLOTRIMAZOLE/BETAMET DIPROP TOPICAL CREAM 45 GM TUBE TP SCH ×2 (10:23→21:50)
[2021-10-20] MEDS: hydrOXYzine PAMOATE 25 MG CAPSULE (FP) PO PRN ×2 (10:23→21:39)
[2021-10-20] MEDS: MINERAL OIL/PETROLAT/WATER TOPICAL CREAM 113 GM JAR TP SCH (10:23)
[2021-10-20] MEDS: ALBUTEROL SO4 HFA INHALER IH PRN (21:38)
[2021-10-20] MEDS: THIAMINE HCL 100 MG TABLET (FP) PO SCH (21:39)
[2021-10-20] MEDS: SUVOREXANT 10 MG TABLET PO PRN (21:39)
[2021-10-21] MEDS: PRENATAL VITAMINS W/ FOLIC ACID TABLET (FP) PO SCH (10:43)
[2021-10-21] MEDS: hydrOXYzine PAMOATE 25 MG CAPSULE (FP) PO PRN ×2 (10:43→21:26)
[2021-10-21] MEDS: BUDESONIDE/FORMETEROL FUMARATE 80/4.5 mcg INHALER IH SCH ×2 (10:43→21:27)
[2021-10-21] MEDS: CLOTRIMAZOLE/BETAMET DIPROP TOPICAL CREAM 45 GM TUBE TP SCH ×2 (10:44→21:27)
[2021-10-21] MEDS: MINERAL OIL/PETROLAT/WATER TOPICAL CREAM 113 GM JAR TP SCH (10:44)
[2021-10-21] MEDS: ALBUTEROL SO4 HFA INHALER IH PRN (21:26)
[2021-10-21] MEDS: THIAMINE HCL 100 MG TABLET (FP) PO SCH (21:26)
[2021-10-21] MEDS: SUVOREXANT 10 MG TABLET PO PRN (21:27)
[2021-10-22 07:37] VITALS: BP 129/83; PULSE 76; TEMP 97.4
[2021-10-22] MEDS: MINERAL OIL/PETROLAT/WATER TOPICAL CREAM 113 GM JAR TP SCH (09:46)
[2021-10-22] MEDS: BUDESONIDE/FORMETEROL FUMARATE 80/4.5 mcg INHALER IH SCH (09:46)
[2021-10-22] MEDS: CLOTRIMAZOLE/BETAMET DIPROP TOPICAL CREAM 45 GM TUBE TP SCH (09:46)
[2021-10-22] MEDS: PRENATAL VITAMINS W/ FOLIC ACID TABLET (FP) PO SCH (09:46)
[2021-10-22] MEDS: hydrOXYzine PAMOATE 25 MG CAPSULE (FP) PO PRN (09:47)
== END 2021-10-22 10:05 | disposition home or self-care (01) | DRG 772 ==
LOC: YASAS 17:10 → Y5N 21:56
PROVIDERS: ADMIT Allergy & Immunology; ATTEND Psychiatry & Neurology Pain Medicine
PROC: HZ42ZZZ Group Counseling for Substance Abuse Treatment, Cognitive-Behavioral (ICD-10-PCS; principal; 2021-10-01)
DX: F10.20 Alcohol dependence, uncomplicated (principal); F14.20 Cocaine dependence, uncomplicated; F11.20 Opioid dependence, uncomplicated; F13.20 Sedative, hypnotic or anxiolytic dependence, uncomplicated; F41.9 Anxiety disorder, unspecified; F32.A Depression, unspecified; F42.9 Obsessive-compulsive disorder, unspecified; Z86.19 Personal history of other infectious and parasitic diseases; Z87.891 Personal history of nicotine dependence

== ENCOUNTER 2022-01-01 12:42 | Inpatient (IN) | payer OTHER ==
[2022-01-01 14:44] VITALS: BMI 22.0
[2022-01-01] MEDS ORDERED: MAG HYDROX/AL HYDROX/SIMETH 30 ML UNIT-DOSE CUP PO PRN (15:31)
[2022-01-01] MEDS ORDERED: NICOTINE 10 MG CARTRIDGE (INHALER) IH PRN (15:31)
[2022-01-01] MEDS ORDERED: MAGNESIUM CITRATE 300 ML BOTTLE PO PRN (15:31)
[2022-01-01] MEDS ORDERED: ONDANSETRON *ODT* 4 MG TABLET SL PRN (15:31)
[2022-01-01] MEDS ORDERED: ACETAMINOPHEN 325 MG TABLET (FP) PO PRN ×2 (15:31)
[2022-01-01] MEDS ORDERED: NALOXONE HCL (KLOXXADO) 8 MG SPRAY NS PRN (15:31)
[2022-01-01] MEDS ORDERED: DICYCLOMINE HCL 10 MG CAPSULE PO PRN (15:31)
[2022-01-01] MEDS ORDERED: MAGNESIUM HYDROX 2400MG/30ML ORAL SUSPENSION 30 ML CUP PO PRN (15:31)
[2022-01-01] MEDS ORDERED: IBUPROFEN 600 MG TABLET (FP) PO PRN (15:31)
[2022-01-01] MEDS ORDERED: IBUPROFEN 400 MG TABLET (FP) PO PRN (15:31)
[2022-01-01] MEDS ORDERED: BENZOCAINE/MENTHOL (CHLORASEPTIC ) LOZENGE MM PRN (15:31)
[2022-01-01] MEDS ORDERED: BISMUTH SUBSALICYLATE 524 MG/30 ML PO PRN (15:31)
[2022-01-01] MEDS ORDERED: LOPERAMIDE HCL 2 MG CAPSULE PO PRN (15:31)
[2022-01-01] MEDS ORDERED: ALBUTEROL SO4 HFA INHALER IH ONE (16:23)
[2022-01-01] MEDS: ALBUTEROL SO4 HFA INHALER IH PRN (16:25)
[2022-01-01] MEDS: THIAMINE HCL 100 MG TABLET (FP) PO SCH (21:46)
[2022-01-01] MEDS: hydrOXYzine PAMOATE 25 MG CAPSULE (FP) PO PRN (21:47)
[2022-01-01] MEDS: MELATONIN 5 MG TABLETS PO SCH (21:47)
[2022-01-02] MEDS: hydrOXYzine PAMOATE 25 MG CAPSULE (FP) PO PRN (06:04)
[2022-01-02] MEDS ORDERED: methaDONE HCL 10 MG TABLET PO ONE (09:28)
[2022-01-02] MEDS ORDERED: methaDONE 80 MG, methaDONE 20 MG PO ONE (10:00)
[2022-01-02] MEDS: PRENATAL VITAMINS W/ FOLIC ACID TABLET (FP) PO SCH (10:20)
[2022-01-02] MEDS: BUDESONIDE/FORMETEROL FUMARATE 80/4.5 mcg INHALER IH SCH ×2 (10:21→22:08)
[2022-01-02] MEDS ORDERED: LORazepam 1 MG TABLET PO PRN (10:22)
[2022-01-02] MEDS ORDERED: ALBUTEROL SO4 0.083% IH SOL 2.5 MG/3 ML VIAL.NEB. NEB PRN (10:39)
[2022-01-02] MEDS: LORazepam 2 MG TABLET PO SCH ×3 (10:46→22:09)
[2022-01-02 11:39] LABS: HEMATOCRIT 42.6 % (32.4-45.2); HEMOGLOBIN 14.2 GM/dL (10.7-15.3); MCH 28.4 pg (25.7-33.7); MCHC 33.3 g/dl (32.0-36.0); MEAN CELL VOLUME 85.2 fl (80-96); PLATELET COUNT 273 10^3/uL (134-434); RDW 14.4 % (11.6-15.6); WHITE BLOOD COUNT 5.3 K/mm3 (4.0-10.0)
[2022-01-02 11:44] LABS: BLOOD UREA NITROGEN 8.9 mg/dL (7-18)
[2022-01-02 11:46] LABS: ALBUMIN 3.2 g/dl (3.4-5.0); CALCIUM 8.8 mg/dL (8.5-10.1)
[2022-01-02 11:48] LABS: CREATININE 0.6 mg/dL (0.55-1.3)
[2022-01-02 11:50] LABS: BILIRUBIN,TOTAL 0.6 mg/dL (0.2-1); TOT PROT 6.3 g/dl (6.4-8.2)
[2022-01-02] MEDS: ALBUTEROL SO4 HFA INHALER IH PRN (17:14)
[2022-01-02] MEDS: MELATONIN 5 MG TABLETS PO SCH (22:07)
[2022-01-02] MEDS: THIAMINE HCL 100 MG TABLET (FP) PO SCH (22:07)
[2022-01-03] MEDS: methaDONE 80 MG, methaDONE 20 MG PO SCH (05:51)
[2022-01-03] MEDS: LORazepam 1 MG TABLET PO SCH ×4 (05:51→22:08)
[2022-01-03] MEDS ORDERED: methaDONE HCL 10 MG TABLET PO SCH (06:00)
[2022-01-03] MEDS: PRENATAL VITAMINS W/ FOLIC ACID TABLET (FP) PO SCH (10:06)
[2022-01-03] MEDS: BUDESONIDE/FORMETEROL FUMARATE 80/4.5 mcg INHALER IH SCH ×2 (10:06→22:09)
[2022-01-03] MEDS: hydrOXYzine PAMOATE 25 MG CAPSULE (FP) PO PRN (17:27)
[2022-01-03 21:14] VITALS: RESP 18
[2022-01-03] MEDS: MELATONIN 5 MG TABLETS PO SCH (22:07)
[2022-01-03] MEDS: THIAMINE HCL 100 MG TABLET (FP) PO SCH (22:07)
[2022-01-04] MEDS ORDERED: LORazepam 0.5 MG TABLET PO PRN
[2022-01-04] MEDS: methaDONE 80 MG, methaDONE 20 MG PO SCH (05:41)
[2022-01-04] MEDS: LORazepam 0.5 MG TABLET PO SCH ×4 (05:42→22:10)
[2022-01-04] MEDS: PRENATAL VITAMINS W/ FOLIC ACID TABLET (FP) PO SCH (10:10)
[2022-01-04] MEDS: ALBUTEROL SO4 HFA INHALER IH PRN (10:10)
[2022-01-04] MEDS: BUDESONIDE/FORMETEROL FUMARATE 80/4.5 mcg INHALER IH SCH ×2 (10:11→22:11)
[2022-01-04] MEDS: METHOCARBAMOL 500 MG TABLET PO PRN ×2 (14:17→22:10)
[2022-01-04] MEDS: THIAMINE HCL 100 MG TABLET (FP) PO SCH (22:10)
[2022-01-04] MEDS: MELATONIN 5 MG TABLETS PO SCH (22:11)
[2022-01-05] MEDS: hydrOXYzine PAMOATE 25 MG CAPSULE (FP) PO PRN (00:40)
[2022-01-05] MEDS ORDERED: LORazepam 0.5 MG TABLET PO ONE (05:00)
[2022-01-05] MEDS: methaDONE 80 MG, methaDONE 20 MG PO SCH (05:54)
[2022-01-05] MEDS: PRENATAL VITAMINS W/ FOLIC ACID TABLET (FP) PO SCH (10:22)
[2022-01-05] MEDS: ALBUTEROL SO4 HFA INHALER IH PRN (10:22)
[2022-01-05] MEDS: METHOCARBAMOL 500 MG TABLET PO PRN (10:22)
[2022-01-05] MEDS: BUDESONIDE/FORMETEROL FUMARATE 80/4.5 mcg INHALER IH SCH (10:23)
[2022-01-05 12:09] VITALS: BP 127/83; PULSE 87; TEMP 97.3
== END 2022-01-05 13:12 | disposition home or self-care (01) | DRG 773 ==
LOC: YASAS 12:42 → Y6N 16:09
PROVIDERS: ADMIT Allergy & Immunology; ATTEND Surgery
PROC: HZ2ZZZZ Detoxification Services for Substance Abuse Treatment (ICD-10-PCS; principal; 2022-01-01)
DX: F10.230 Alcohol dependence with withdrawal, uncomplicated (principal); F11.20 Opioid dependence, uncomplicated; F13.20 Sedative, hypnotic or anxiolytic dependence, uncomplicated; F14.20 Cocaine dependence, uncomplicated; F12.20 Cannabis dependence, uncomplicated; F32.A Depression, unspecified; J44.9 Chronic obstructive pulmonary disease, unspecified; J45.20 Mild intermittent asthma, uncomplicated; R63.4 Abnormal weight loss; Z68.22 Body mass index [BMI] 22.0-22.9, adult
CPT/HCPCS: 36415; 80053; 81025; 85027; 86780; 87811; C9803-CS; U0003; U0005

== ENCOUNTER 2022-03-06 18:25 | Inpatient (IN) | payer OTHER ==
[2022-03-06 19:45] VITALS: BMI 21.1
[2022-03-06] MEDS ORDERED: BENZOCAINE/MENTHOL (CHLORASEPTIC ) LOZENGE MM PRN (21:39)
[2022-03-06] MEDS ORDERED: ACETAMINOPHEN 325 MG TABLET (FP) PO PRN ×2 (21:39)
[2022-03-06] MEDS ORDERED: LOPERAMIDE HCL 2 MG CAPSULE PO PRN (21:39)
[2022-03-06] MEDS ORDERED: BISMUTH SUBSALICYLATE 524 MG/30 ML PO PRN (21:39)
[2022-03-06] MEDS ORDERED: MAGNESIUM HYDROX 2400MG/30ML ORAL SUSPENSION 30 ML CUP PO PRN (21:39)
[2022-03-06] MEDS ORDERED: POLYETHYLENE GLYCOL (HEALTHYLAX) 3350 17 GM PACKET PO PRN (21:39)
[2022-03-06] MEDS ORDERED: DICYCLOMINE HCL 10 MG CAPSULE PO PRN (21:39)
[2022-03-06] MEDS ORDERED: MAG HYDROX/AL HYDROX/SIMETH 30 ML UNIT-DOSE CUP PO PRN (21:39)
[2022-03-06] MEDS ORDERED: ONDANSETRON *ODT* 4 MG TABLET SL PRN (21:39)
[2022-03-06] MEDS ORDERED: IBUPROFEN 600 MG TABLET (FP) PO PRN (21:39)
[2022-03-06] MEDS ORDERED: IBUPROFEN 400 MG TABLET (FP) PO PRN (21:39)
[2022-03-06] MEDS ORDERED: NALOXONE HCL (KLOXXADO) 8 MG SPRAY NS PRN (21:39)
[2022-03-06] MEDS: THIAMINE HCL 100 MG TABLET (FP) PO SCH (23:47)
[2022-03-06] MEDS: MELATONIN 5 MG TABLETS PO SCH (23:47)
[2022-03-06] MEDS: METHOCARBAMOL 500 MG TABLET PO PRN (23:47)
[2022-03-06] MEDS: hydrOXYzine PAMOATE 25 MG CAPSULE (FP) PO PRN (23:48)
[2022-03-07] MEDS: P-EPHED 60MG/TRIPROLIDI 2.5MG TABLET PO PRN (04:02)
[2022-03-07] MEDS ORDERED: methaDONE HCL 10 MG TABLET (FOR DETOX USE ONLY) PO ONE (09:45)
[2022-03-07] MEDS: METHOCARBAMOL 500 MG TABLET PO PRN ×2 (10:31→20:36)
[2022-03-07] MEDS: PRENATAL VITAMINS W/ FOLIC ACID TABLET (FP) PO SCH (10:31)
[2022-03-07] MEDS: BUDESONIDE/FORMETEROL FUMARATE 80/4.5 mcg INHALER IH SCH ×2 (10:32→22:17)
[2022-03-07] MEDS: diazePAM 5 MG TABLET PO SCH ×3 (10:33→22:17)
[2022-03-07 11:15] LABS: ALBUMIN 3.3 g/dl (3.4-5.0); BLOOD UREA NITROGEN 8.6 mg/dL (7-18); CALCIUM 8.8 mg/dL (8.5-10.1)
[2022-03-07 11:18] LABS: CREATININE 0.5 mg/dL (0.55-1.3)
[2022-03-07 11:19] LABS: BILIRUBIN,TOTAL 0.7 mg/dL (0.2-1)
[2022-03-07 11:20] LABS: TOT PROT 6.5 g/dl (6.4-8.2)
[2022-03-07] MEDS: cloNIDine HCL 0.1 MG TABLET PO PRN (12:29)
[2022-03-07] MEDS: ALBUTEROL SO4 HFA INHALER IH PRN (14:37)
[2022-03-07] MEDS: hydrOXYzine PAMOATE 25 MG CAPSULE (FP) PO PRN ×2 (14:41→17:58)
[2022-03-07] MEDS: diazePAM 5 MG TABLET PO PRN ×2 (14:43→17:57)
[2022-03-07 15:07] LABS: HEMATOCRIT 40.4 % (32.4-45.2); HEMOGLOBIN 12.9 GM/dL (10.7-15.3); MCH 27.3 pg (25.7-33.7); MCHC 31.9 g/dl (32.0-36.0); MEAN CELL VOLUME 85.6 fl (80-96); MEAN PLT VOLUME 8.6 fl (7.5-11.1); PLATELET COUNT 221 10^3/uL (134-434); RBC 4.71 M/mm3 (3.60-5.2); RDW 15.9 % (11.6-15.6); WHITE BLOOD COUNT 5.7 K/mm3 (4.0-10.0)
[2022-03-07] MEDS: THIAMINE HCL 100 MG TABLET (FP) PO SCH (22:17)
[2022-03-07] MEDS: MELATONIN 5 MG TABLETS PO SCH (22:17)
[2022-03-08] MEDS: diazePAM 5 MG TABLET PO SCH ×3 (05:30→22:07)
[2022-03-08] MEDS: hydrOXYzine PAMOATE 25 MG CAPSULE (FP) PO PRN ×3 (05:31→22:06)
[2022-03-08] MEDS: METHOCARBAMOL 500 MG TABLET PO PRN ×2 (05:31→22:07)
[2022-03-08] MEDS: BUDESONIDE/FORMETEROL FUMARATE 80/4.5 mcg INHALER IH SCH ×2 (09:28→22:08)
[2022-03-08] MEDS: diazePAM 5 MG TABLET PO PRN ×2 (09:30→18:24)
[2022-03-08] MEDS: PRENATAL VITAMINS W/ FOLIC ACID TABLET (FP) PO SCH (09:31)
[2022-03-08] MEDS: ALBUTEROL SO4 HFA INHALER IH PRN ×4 (16:22→21:02)
[2022-03-08] MEDS: P-EPHED 60MG/TRIPROLIDI 2.5MG TABLET PO PRN (18:26)
[2022-03-08] MEDS: MELATONIN 5 MG TABLETS PO SCH (22:06)
[2022-03-08] MEDS: THIAMINE HCL 100 MG TABLET (FP) PO SCH (22:07)
[2022-03-08] MEDS: guaiFENesin 200 MG/10 ML 10 ML UNIT-DOSE CUPS PO PRN (22:08)
[2022-03-09] MEDS: hydrOXYzine PAMOATE 25 MG CAPSULE (FP) PO PRN ×3 (05:20→16:55)
[2022-03-09] MEDS: diazePAM 5 MG TABLET PO SCH ×2 (05:21→18:00)
[2022-03-09] MEDS: diazePAM 5 MG TABLET PO PRN ×3 (08:35→22:10)
[2022-03-09] MEDS: ALBUTEROL SO4 HFA INHALER IH PRN ×2 (08:52→19:34)
[2022-03-09] MEDS: guaiFENesin 200 MG/10 ML 10 ML UNIT-DOSE CUPS PO PRN ×2 (08:52→19:35)
[2022-03-09] MEDS: P-EPHED 60MG/TRIPROLIDI 2.5MG TABLET PO PRN ×2 (08:53→19:36)
[2022-03-09] MEDS: BUDESONIDE/FORMETEROL FUMARATE 80/4.5 mcg INHALER IH SCH ×2 (09:20→22:12)
[2022-03-09] MEDS: METHOCARBAMOL 500 MG TABLET PO PRN ×2 (09:21→22:09)
[2022-03-09] MEDS: cloNIDine HCL 0.1 MG TABLET PO PRN (09:21)
[2022-03-09] MEDS: PRENATAL VITAMINS W/ FOLIC ACID TABLET (FP) PO SCH (09:21)
[2022-03-09] MEDS ORDERED: methaDONE HCL 10 MG TABLET (FOR DETOX USE ONLY) PO ONE (10:00)
[2022-03-09] MEDS: MELATONIN 5 MG TABLETS PO SCH (22:09)
[2022-03-09] MEDS: THIAMINE HCL 100 MG TABLET (FP) PO SCH (22:09)
[2022-03-10] MEDS: METHOCARBAMOL 500 MG TABLET PO PRN ×2 (05:30→17:55)
[2022-03-10] MEDS ORDERED: diazePAM 5 MG TABLET PO ONE (06:00)
[2022-03-10] MEDS: BUDESONIDE/FORMETEROL FUMARATE 80/4.5 mcg INHALER IH SCH ×2 (09:46→22:07)
[2022-03-10] MEDS: ALBUTEROL SO4 HFA INHALER IH PRN (09:46)
[2022-03-10] MEDS: guaiFENesin 200 MG/10 ML 10 ML UNIT-DOSE CUPS PO PRN (09:46)
[2022-03-10] MEDS: PRENATAL VITAMINS W/ FOLIC ACID TABLET (FP) PO SCH (10:01)
[2022-03-10] MEDS: hydrOXYzine PAMOATE 25 MG CAPSULE (FP) PO PRN ×2 (10:05→22:08)
[2022-03-10 13:17] LABS: URINE APPEARANCE CLOUDY; URINE BILIRUBIN NEGATIVE (NEGATIVE); URINE COLOR YELLOW; URINE GLUCOSE (UA) NEGATIVE (NEGATIVE); URINE KETONE NEGATIVE (NEGATIVE); URINE LEUK ESTERASE NEGATIVE (NEGATIVE); URINE NITRITE NEGATIVE (NEGATIVE); URINE PROTEIN NEGATIVE (NEGATIVE); URINE UROBILINOGEN 0.2 mg/dL (0.2-1.0)
[2022-03-10] MEDS: THIAMINE HCL 100 MG TABLET (FP) PO SCH (22:06)
[2022-03-10] MEDS: MELATONIN 5 MG TABLETS PO SCH (22:06)
[2022-03-11] MEDS: METHOCARBAMOL 500 MG TABLET PO PRN ×2 (05:37→18:29)
[2022-03-11] MEDS: hydrOXYzine PAMOATE 25 MG CAPSULE (FP) PO PRN ×3 (05:37→22:15)
[2022-03-11] MEDS ORDERED: methaDONE HCL 10 MG TABLET (FOR DETOX USE ONLY) PO ONE (10:00)
[2022-03-11] MEDS: PRENATAL VITAMINS W/ FOLIC ACID TABLET (FP) PO SCH (10:12)
[2022-03-11] MEDS: BUDESONIDE/FORMETEROL FUMARATE 80/4.5 mcg INHALER IH SCH ×2 (10:14→22:15)
[2022-03-11] MEDS: ALBUTEROL SO4 HFA INHALER IH PRN (15:20)
[2022-03-11] MEDS: MELATONIN 5 MG TABLETS PO SCH (22:15)
[2022-03-11] MEDS: THIAMINE HCL 100 MG TABLET (FP) PO SCH (22:15)
[2022-03-12] MEDS: METHOCARBAMOL 500 MG TABLET PO PRN ×2 (05:10→10:12)
[2022-03-12] MEDS: hydrOXYzine PAMOATE 25 MG CAPSULE (FP) PO PRN (05:10)
[2022-03-12] MEDS: PRENATAL VITAMINS W/ FOLIC ACID TABLET (FP) PO SCH (10:11)
[2022-03-12] MEDS: BUDESONIDE/FORMETEROL FUMARATE 80/4.5 mcg INHALER IH SCH (10:11)
[2022-03-12] MEDS: ALBUTEROL SO4 HFA INHALER IH PRN (10:12)
[2022-03-12 13:34] VITALS: BP 122/69; PULSE 97; RESP 18; TEMP 98.2
== END 2022-03-12 15:00 | disposition other institution (70) | DRG 773 ==
LOC: YASAS 18:25 → Y6N 23:21
PROVIDERS: ADMIT Allergy & Immunology; ATTEND Surgery
PROC: HZ2ZZZZ Detoxification Services for Substance Abuse Treatment (ICD-10-PCS; principal; 2022-03-06)
DX: F11.23 Opioid dependence with withdrawal (principal); F10.230 Alcohol dependence with withdrawal, uncomplicated; F14.20 Cocaine dependence, uncomplicated; J45.20 Mild intermittent asthma, uncomplicated; R63.4 Abnormal weight loss; Z68.21 Body mass index [BMI] 21.0-21.9, adult; Z87.891 Personal history of nicotine dependence
CPT/HCPCS: 36415; 80053; 81003; 85027; 86780; C9803-CS; U0003; U0005

== ENCOUNTER 2022-03-12 15:15 | Inpatient (IN) | payer OTHER ==
[~2022-03-12 15:15] MED LIST: ACETAMINOPHEN 325 MG TABLET (FP) PO PRN; BENZOCAINE/MENTHOL (CHLORASEPTIC ) LOZENGE MM PRN; IBUPROFEN 400 MG TABLET (FP) PO PRN; LOPERAMIDE HCL 2 MG CAPSULE PO PRN; MAG HYDROX/AL HYDROX/SIMETH 30 ML UNIT-DOSE CUP PO PRN; MAGNESIUM HYDROX 2400MG/30ML ORAL SUSPENSION 30 ML CUP PO PRN; NICOTINE 10 MG CARTRIDGE (INHALER) IH PRN; NICOTINE 7 MG/24 HOURS TOPICAL PATCH TD PRN; NICOTINE POLACRILEX 2 MG GUM BUC PRN; P-EPHED 60MG/TRIPROLIDI 2.5MG TABLET PO PRN; POLYETHYLENE GLYCOL (HEALTHYLAX) 3350 17 GM PACKET PO PRN
[2022-03-12] MEDS: THIAMINE HCL 100 MG TABLET (FP) PO SCH (21:21)
[2022-03-12] MEDS: hydrOXYzine PAMOATE 25 MG CAPSULE (FP) PO PRN (21:22)
[2022-03-12] MEDS ORDERED: MELATONIN 5 MG TABLETS PO SCH (22:00)
[2022-03-13] MEDS: PRENATAL VITAMINS W/ FOLIC ACID TABLET (FP) PO SCH (10:06)
[2022-03-13] MEDS: hydrOXYzine PAMOATE 25 MG CAPSULE (FP) PO PRN (10:08)
[2022-03-13] MEDS ORDERED: BUPRENORPHINE HCL 150 MCG, BUPRENORPHINE HCL 75 MCG BC PRN (12:39)
[2022-03-13] MEDS ORDERED: BUPRENORPHINE HCL 150 MCG, BUPRENORPHINE HCL 75 MCG BC ONE (13:30)
[2022-03-13] MEDS: BACLOFEN 10 MG TABLET (FP) PO SCH ×2 (13:43→21:21)
[2022-03-13] MEDS ORDERED: cloNIDine HCL 0.1 MG TABLET PO ONE (13:45)
[2022-03-13] MEDS ORDERED: cloNIDine HCL 0.1 MG TABLET PO PRN (16:39)
[2022-03-13] MEDS: THIAMINE HCL 100 MG TABLET (FP) PO SCH (21:21)
[2022-03-13] MEDS: SUVOREXANT 10 MG TABLET PO PRN (21:24)
[2022-03-13] MEDS: BUDESONIDE/FORMETEROL FUMARATE 80/4.5 mcg INHALER IH SCH (21:25)
[2022-03-14] MEDS ORDERED: BUPRENORPHINE HCL 150 MCG, BUPRENORPHINE HCL 75 MCG BC PRN
[2022-03-14] MEDS: BUPRENORPHINE HCL 150 MCG, BUPRENORPHINE HCL 75 MCG BC SCH ×2 (06:18→17:52)
[2022-03-14] MEDS: BACLOFEN 10 MG TABLET (FP) PO SCH ×3 (06:18→21:38)
[2022-03-14] MEDS: PRENATAL VITAMINS W/ FOLIC ACID TABLET (FP) PO SCH (09:36)
[2022-03-14] MEDS: BUDESONIDE/FORMETEROL FUMARATE 80/4.5 mcg INHALER IH SCH ×2 (09:40→21:55)
[2022-03-14] MEDS: THIAMINE HCL 100 MG TABLET (FP) PO SCH (21:38)
[2022-03-14] MEDS: SUVOREXANT 10 MG TABLET PO PRN (21:39)
[2022-03-15] MEDS: BACLOFEN 10 MG TABLET (FP) PO SCH ×3 (06:00→21:38)
[2022-03-15] MEDS: BUPRENORPHINE HCL 450 MCG FILM BC SCH ×2 (06:01→17:53)
[2022-03-15] MEDS: PRENATAL VITAMINS W/ FOLIC ACID TABLET (FP) PO SCH (09:56)
[2022-03-15] MEDS: BUDESONIDE/FORMETEROL FUMARATE 80/4.5 mcg INHALER IH SCH ×2 (09:59→21:39)
[2022-03-15] MEDS: THIAMINE HCL 100 MG TABLET (FP) PO SCH (21:37)
[2022-03-15] MEDS: SUVOREXANT 10 MG TABLET PO PRN (21:38)
[2022-03-16] MEDS: ALBUTEROL SO4 HFA INHALER IH PRN ×2 (05:48→19:14)
[2022-03-16] MEDS: BACLOFEN 10 MG TABLET (FP) PO SCH ×3 (06:07→21:39)
[2022-03-16] MEDS: BUPRENORPHINE/NALOXONE 4 MG/1 MG FILM PACKET SL SCH ×2 (06:07→17:46)
[2022-03-16] MEDS: PRENATAL VITAMINS W/ FOLIC ACID TABLET (FP) PO SCH (09:56)
[2022-03-16] MEDS: BUDESONIDE/FORMETEROL FUMARATE 80/4.5 mcg INHALER IH SCH ×2 (09:57→21:44)
[2022-03-16] MEDS: THIAMINE HCL 100 MG TABLET (FP) PO SCH (21:39)
[2022-03-16] MEDS: hydrOXYzine PAMOATE 25 MG CAPSULE (FP) PO PRN (21:42)
[2022-03-16] MEDS: SUVOREXANT 10 MG TABLET PO PRN (21:42)
[2022-03-16] MEDS ORDERED: SUVOREXANT 10 MG TABLET PO PRN (22:00)
[2022-03-17] MEDS: BACLOFEN 10 MG TABLET (FP) PO SCH ×3 (05:55→21:42)
[2022-03-17] MEDS ORDERED: BUPRENORPHINE/NALOXONE 8 MG/2 MG FILM PACKET SL ONE (06:00)
[2022-03-17] MEDS: PRENATAL VITAMINS W/ FOLIC ACID TABLET (FP) PO SCH (10:00)
[2022-03-17] MEDS: BUDESONIDE/FORMETEROL FUMARATE 80/4.5 mcg INHALER IH SCH ×2 (10:00→21:43)
[2022-03-17] MEDS: THIAMINE HCL 100 MG TABLET (FP) PO SCH (21:42)
[2022-03-17] MEDS: hydrOXYzine PAMOATE 25 MG CAPSULE (FP) PO PRN (22:05)
[2022-03-18] MEDS: BACLOFEN 10 MG TABLET (FP) PO SCH ×3 (05:52→21:47)
[2022-03-18] MEDS: BUPRENORPHINE/NALOXONE 8 MG/2 MG FILM PACKET SL SCH ×2 (09:55→21:47)
[2022-03-18] MEDS: BUDESONIDE/FORMETEROL FUMARATE 80/4.5 mcg INHALER IH SCH ×2 (09:55→21:47)
[2022-03-18] MEDS: PRENATAL VITAMINS W/ FOLIC ACID TABLET (FP) PO SCH (09:55)
[2022-03-18] MEDS ORDERED: BUPRENORPHINE/NALOXONE 8 MG/2 MG FILM PACKET SL SCH (10:00)
[2022-03-18] MEDS: THIAMINE HCL 100 MG TABLET (FP) PO SCH (21:47)
[2022-03-18] MEDS: hydrOXYzine PAMOATE 25 MG CAPSULE (FP) PO PRN (21:48)
[2022-03-19] MEDS: BACLOFEN 10 MG TABLET (FP) PO SCH ×3 (06:14→21:33)
[2022-03-19] MEDS: BUPRENORPHINE/NALOXONE 8 MG/2 MG FILM PACKET SL SCH ×2 (07:10→21:33)
[2022-03-19] MEDS: BUDESONIDE/FORMETEROL FUMARATE 80/4.5 mcg INHALER IH SCH ×2 (09:10→21:33)
[2022-03-19] MEDS: PRENATAL VITAMINS W/ FOLIC ACID TABLET (FP) PO SCH (09:10)
[2022-03-19] MEDS: hydrOXYzine PAMOATE 25 MG CAPSULE (FP) PO PRN ×2 (09:11→21:34)
[2022-03-19] MEDS: THIAMINE HCL 100 MG TABLET (FP) PO SCH (21:33)
[2022-03-19] MEDS: SUVOREXANT 10 MG TABLET PO PRN (21:35)
[2022-03-20] MEDS: BACLOFEN 10 MG TABLET (FP) PO SCH ×3 (06:02→21:42)
[2022-03-20] MEDS: BUPRENORPHINE/NALOXONE 8 MG/2 MG FILM PACKET SL SCH ×2 (07:08→19:37)
[2022-03-20] MEDS: PRENATAL VITAMINS W/ FOLIC ACID TABLET (FP) PO SCH (09:07)
[2022-03-20] MEDS: BUDESONIDE/FORMETEROL FUMARATE 80/4.5 mcg INHALER IH SCH ×2 (09:07→21:43)
[2022-03-20] MEDS: guaiFENesin 200 MG/10 ML 10 ML UNIT-DOSE CUPS PO PRN (19:35)
[2022-03-20] MEDS: THIAMINE HCL 100 MG TABLET (FP) PO SCH (21:42)
[2022-03-20] MEDS: SUVOREXANT 10 MG TABLET PO PRN (21:43)
[2022-03-20] MEDS: hydrOXYzine PAMOATE 25 MG CAPSULE (FP) PO PRN (21:44)
[2022-03-21] MEDS: BACLOFEN 10 MG TABLET (FP) PO SCH ×3 (06:07→21:47)
[2022-03-21] MEDS: BUPRENORPHINE/NALOXONE 8 MG/2 MG FILM PACKET SL SCH ×2 (07:03→21:46)
[2022-03-21] MEDS: PRENATAL VITAMINS W/ FOLIC ACID TABLET (FP) PO SCH (09:18)
[2022-03-21] MEDS: BUDESONIDE/FORMETEROL FUMARATE 80/4.5 mcg INHALER IH SCH ×2 (09:19→21:47)
[2022-03-21] MEDS: hydrOXYzine PAMOATE 25 MG CAPSULE (FP) PO PRN (09:20)
[2022-03-21] MEDS: ALBUTEROL SO4 HFA INHALER IH PRN ×2 (13:49→16:59)
[2022-03-21] MEDS: guaiFENesin 200 MG/10 ML 10 ML UNIT-DOSE CUPS PO PRN (13:50)
[2022-03-21] MEDS ORDERED: ALBUTEROL SO4 0.083% IH SOL 2.5 MG/3 ML VIAL.NEB. NEB PRN (14:59)
[2022-03-21] MEDS ORDERED: predniSONE 20 MG TABLET (UD) PO ONE (15:14)
[2022-03-21 17:59] VITALS: BP 142/87; PULSE 120; RESP 20; TEMP 98.4
[2022-03-21] MEDS: THIAMINE HCL 100 MG TABLET (FP) PO SCH (21:47)
[2022-03-22] MEDS ORDERED: predniSONE 10 MG TABLET (UD) PO ONE (10:00)
[2022-03-23] MEDS ORDERED: predniSONE 20 MG TABLET (UD) PO ONE (10:00)
[2022-03-24] MEDS ORDERED: predniSONE 10 MG TABLET (UD) PO ONE (10:00)
[2022-03-25] MEDS ORDERED: predniSONE 5 MG TABLET (UD) PO ONE (10:00)
== END 2022-03-21 18:10 | disposition short-term general hospital (02) | DRG 772 ==
LOC: YASAS 15:15 → Y5N 15:16
PROVIDERS: ADMIT Allergy & Immunology; ATTEND Psychiatry & Neurology Pain Medicine
PROC: HZ42ZZZ Group Counseling for Substance Abuse Treatment, Cognitive-Behavioral (ICD-10-PCS; principal; 2022-03-12)
DX: F11.20 Opioid dependence, uncomplicated (principal); F10.20 Alcohol dependence, uncomplicated; F14.20 Cocaine dependence, uncomplicated; F19.280 Other psychoactive substance dependence with psychoactive substance-induced anxiety disorder; F19.282 Other psychoactive substance dependence with psychoactive substance-induced sleep disorder; F19.24 Other psychoactive substance dependence with psychoactive substance-induced mood disorder; F41.9 Anxiety disorder, unspecified; F42.9 Obsessive-compulsive disorder, unspecified; F32.A Depression, unspecified; U07.1 COVID-19; J45.41 Moderate persistent asthma with (acute) exacerbation; Z87.891 Personal history of nicotine dependence; Z88.6 Allergy status to analgesic agent
CPT/HCPCS: 36415; 86803; 94640; C9803-CS; J0475; U0003; U0005

== ENCOUNTER 2022-03-21 18:30 | Inpatient (IN) | payer OTHER ==
[2022-03-21 18:50] VITALS: BMI 23.4
[2022-03-21] MEDS ORDERED: DEXAMETHASONE SOD PHOSPHATE 10 MG/1 ML VIAL IVPUSH ONE (19:00)
[2022-03-21] MEDS ORDERED: REMDESIVIR 200 MG in SODIUM CHLORIDE 250 ML IVPB ONE (19:02)
[2022-03-21] MEDS ORDERED: MAGNESIUM SULF 50% (8.12 MEQ/2 ML-1 GM VIAL) IVPB ONE (19:02)
[2022-03-21] MEDS ORDERED: DEXAMETHASONE SOD PHOSPHATE 10 MG/1 ML VIAL ONE (19:30)
[2022-03-21] MEDS ORDERED: MAGNESIUM SULFATE IN WATER 2 GM/50 ML IVPB IVPB ONE (19:30)
[2022-03-21 19:55] LABS: HEMATOCRIT 38.8 % (32.4-45.2); MCHC 33.4 g/dl (32.0-36.0); MEAN CELL VOLUME 83.7 fl (80-96); MEAN PLT VOLUME 7.7 fl (7.5-11.1); PLATELET COUNT 231 10^3/uL (134-434); RBC 4.64 M/mm3 (3.60-5.2); RDW 16.2 % (11.6-15.6)
[2022-03-21] MEDS ORDERED: ACETAMINOPHEN 1000 MG/100 ML BAG IVPB ONE (20:02)
[2022-03-21] MEDS ORDERED: BUPRENORPHINE/NALOXONE 8 MG/2 MG FILM PACKET SL ONE ×3 (20:03→20:08)
[2022-03-21] MEDS ORDERED: ALBUTEROL SO4 2.5/IPRATROPIUM 0.5 INH SOL 3 ML VIAL.NEB. NEB ONE (20:10)
[2022-03-21 20:11] LABS: VENOUS BASE EXCESS -3.2 mmol/L (-2-2); VENOUS O2 SATURATION 49.3 % (70-80); VENOUS PCO2 48.7 mmHg (38-52); VENOUS PH 7.302 (7.310-7.410)
[2022-03-21] MEDS ORDERED: BUPRENORPHINE/NALOXONE 8 MG/2 MG FILM PACKET ONE (20:11)
[2022-03-21 20:17] LABS: CHLORIDE 103 mmol/L (98-107); SODIUM 134 mmol/L (136-145)
[2022-03-21 20:19] LABS: ANION GAP 4 MMOL/L (8-16); CALCIUM 8.9 mg/dL (8.5-10.1); CO2 27 mmol/L (21-32); GLUCOSE,RANDOM 114 mg/dL (74-106)
[2022-03-21] MEDS ORDERED: ACETAMINOPHEN INJECTION 100 ML IVPB ONE (20:21)
[2022-03-21 20:22] LABS: CREATININE 0.7 mg/dL (0.55-1.3)
[2022-03-21 20:23] LABS: SGOT/AST 13 U/L (15-37); SGPT/ALT 17 U/L (13-61)
[2022-03-21 20:24] LABS: BILIRUBIN,TOTAL 0.3 mg/dL (0.2-1); TOT PROT 7.6 g/dl (6.4-8.2)
[2022-03-21 20:25] LABS: ALK PHOS 116 U/L (45-117)
[2022-03-21] MEDS: ALBUTEROL SO4 2.5/IPRATROPIUM 0.5 INH SOL 3 ML VIAL.NEB. NEB SCH (20:28)
[2022-03-21 21:15] LABS: ANISOCYTOSIS 1+; MACROCYTOSIS 0
[2022-03-21 23:33] LABS: LDH 173 U/L (84-246)
[2022-03-21] MEDS: LACTATED RINGERS SOLUTION 1,000 ML/1,000 ML INFUS.BAG IV SCH (23:40)
[2022-03-21 23:59] LABS: TOTAL IRON BINDING CAPACITY 450 ug/dL (250-450)
[2022-03-22] LABS: IRON SERUM 25 ug/dL (50-175)
[2022-03-22] MEDS ORDERED: FOLIC ACID INJECTION - 1 MG, THIAMINE HCL 100 MG, MULTIVIT INJECTION ADULT 10 ML in SOD... IVPB ONE (00:42)
[2022-03-22] MEDS ORDERED: diazePAM 5 MG TABLET PO PRN (00:43)
[2022-03-22] MEDS ORDERED: diazePAM 5 MG TABLET ONE ×2 (04:45→12:06)
[2022-03-22] MEDS: diazePAM 5 MG TABLET PO SCH ×4 (04:59→23:20)
[2022-03-22] MEDS ORDERED: FOLIC ACID 1 MG TABLET (FP) ONE (09:15)
[2022-03-22] MEDS ORDERED: DEXAMETHASONE SOD PHOSPHATE 4 MG/1 ML VIAL ONE (09:15)
[2022-03-22] MEDS ORDERED: THIAMINE HCL 100 MG TABLET (FP) ONE (09:15)
[2022-03-22] MEDS ORDERED: ALBUTEROL SO4 2.5/IPRATROPIUM 0.5 INH SOL 3 ML VIAL.NEB. NEB ONE ×2 (09:15→12:06)
[2022-03-22] MEDS ORDERED: ENOXAPARIN NA (PORCINE) 40 MG/0.4 ML DISP.SYRIN SQ ONE (09:16)
[2022-03-22] MEDS: FOLIC ACID 1 MG TABLET (FP) PO SCH (09:47)
[2022-03-22] MEDS: THIAMINE HCL 100 MG TABLET (FP) PO SCH (09:48)
[2022-03-22] MEDS: DEXAMETHASONE SOD PHOSPHATE 10 MG/1 ML VIAL IVPUSH SCH (09:48)
[2022-03-22] MEDS: ENOXAPARIN NA (PORCINE) 40 MG/0.4 ML DISP.SYRIN SQ SCH (09:48)
[2022-03-22] MEDS: ALBUTEROL SO4 2.5/IPRATROPIUM 0.5 INH SOL 3 ML VIAL.NEB. NEB SCH ×2 (09:54→14:45)
[2022-03-22] MEDS ORDERED: ACETAMINOPHEN 1000 MG/100 ML BAG IVPB PRN (10:25)
[2022-03-22 10:38] LABS: PH,URINE 5.5 (5.0-8.0); URINE APPEARANCE CLOUDY; URINE BILIRUBIN NEGATIVE (NEGATIVE); URINE COLOR YELLOW; URINE GLUCOSE (UA) NEGATIVE (NEGATIVE); URINE KETONE NEGATIVE (NEGATIVE); URINE LEUK ESTERASE NEGATIVE (NEGATIVE); URINE NITRITE NEGATIVE (NEGATIVE); URINE PROTEIN NEGATIVE (NEGATIVE); URINE UROBILINOGEN 0.2 mg/dL (0.2-1.0)
[2022-03-22] MEDS ORDERED: BUPRENORPHINE/NALOXONE 8 MG/2 MG FILM PACKET ONE (10:43)
[2022-03-22] MEDS: BUPRENORPHINE/NALOXONE 8 MG/2 MG FILM PACKET SL SCH ×2 (10:46→21:38)
[2022-03-22] MEDS: REMDESIVIR 100 MG in SODIUM CHLORIDE 250 ML IVPB SCH (21:38)
[2022-03-22] MEDS: BUDESONIDE/FORMETEROL FUMARATE 80/4.5 mcg INHALER IH SCH (21:39)
[2022-03-22] MEDS: LACTATED RINGERS SOLUTION 1,000 ML/1,000 ML INFUS.BAG IV SCH (23:27)
[2022-03-22] MEDS: ALBUTEROL SO4 HFA INHALER IH PRN (23:28)
[2022-03-23] MEDS: diazePAM 5 MG TABLET PO SCH ×3 (06:35→21:08)
[2022-03-23] MEDS: ALBUTEROL SO4 2.5/IPRATROPIUM 0.5 INH SOL 3 ML VIAL.NEB. NEB SCH (08:21)
[2022-03-23] MEDS: ENOXAPARIN NA (PORCINE) 40 MG/0.4 ML DISP.SYRIN SQ SCH ×2 (09:27→10:09)
[2022-03-23] MEDS: FOLIC ACID 1 MG TABLET (FP) PO SCH (09:28)
[2022-03-23] MEDS: THIAMINE HCL 100 MG TABLET (FP) PO SCH (09:28)
[2022-03-23] MEDS: BUPRENORPHINE/NALOXONE 8 MG/2 MG FILM PACKET SL SCH ×2 (09:28→21:39)
[2022-03-23] MEDS: DEXAMETHASONE SOD PHOSPHATE 10 MG/1 ML VIAL IVPUSH SCH (09:28)
[2022-03-23] MEDS: BUDESONIDE/FORMETEROL FUMARATE 80/4.5 mcg INHALER IH SCH ×2 (09:29→21:41)
[2022-03-23 10:44] LABS: BASO % 0.1 % (0-2.0); EOS % 0.1 % (0-4.5); HEMATOCRIT 33.8 % (32.4-45.2); HEMOGLOBIN 11.2 GM/dL (10.7-15.3); LYMPH % 11.4 % (8-40); MCHC 33.3 g/dl (32.0-36.0); MEAN CELL VOLUME 84.1 fl (80-96); MEAN PLT VOLUME 8.1 fl (7.5-11.1); NEUT % 80.4 % (42.8-82.8); PLATELET COUNT 243 10^3/uL (134-434); RBC 4.02 M/mm3 (3.60-5.2); RDW 16.3 % (11.6-15.6); WHITE BLOOD COUNT 12.7 K/mm3 (4.0-10.0)
[2022-03-23 10:58] LABS: ALBUMIN 3.2 g/dl (3.4-5.0); CALCIUM 8.5 mg/dL (8.5-10.1); MAGNESIUM 1.4 mg/dL (1.8-2.4)
[2022-03-23 11:01] LABS: CREATININE 0.6 mg/dL (0.55-1.3); PHOSPHOROUS 2.8 mg/dL (2.5-4.9)
[2022-03-23 11:03] LABS: BILIRUBIN,TOTAL 0.3 mg/dL (0.2-1); TOT PROT 6.4 g/dl (6.4-8.2)
[2022-03-23] MEDS ORDERED: MAGNESIUM 2GM/50ML STERILE WATER IVPB IVPB ONE (11:04)
[2022-03-23 12:19] LABS: HIV INTERPRETATION NEGATIVE (NEGATIVE)
[2022-03-23] MEDS: IPRATROPIUM/ALBUTEROL (COMBIVENT) RESPIMAT 20-100 MCG IH SCH ×3 (14:24→21:41)
[2022-03-23] MEDS: REMDESIVIR 100 MG in SODIUM CHLORIDE 250 ML IVPB SCH (21:09)
[2022-03-23] MEDS: CLOTRIMAZOLE 1% CREAM TP SCH (21:38)
[2022-03-24] MEDS: ALBUTEROL SO4 HFA INHALER IH PRN (06:05)
[2022-03-24] MEDS: diazePAM 5 MG TABLET PO SCH ×2 (06:11→17:06)
[2022-03-24] MEDS: ENOXAPARIN NA (PORCINE) 40 MG/0.4 ML DISP.SYRIN SQ SCH (09:16)
[2022-03-24] MEDS: BUPRENORPHINE/NALOXONE 8 MG/2 MG FILM PACKET SL SCH ×2 (09:16→22:49)
[2022-03-24] MEDS: THIAMINE HCL 100 MG TABLET (FP) PO SCH (09:16)
[2022-03-24] MEDS: CLOTRIMAZOLE 1% CREAM TP SCH ×2 (09:16→22:48)
[2022-03-24] MEDS: IPRATROPIUM/ALBUTEROL (COMBIVENT) RESPIMAT 20-100 MCG IH SCH ×4 (09:16→22:48)
[2022-03-24] MEDS: DEXAMETHASONE SOD PHOSPHATE 10 MG/1 ML VIAL IVPUSH SCH (09:16)
[2022-03-24] MEDS: FOLIC ACID 1 MG TABLET (FP) PO SCH (09:16)
[2022-03-24] MEDS: BUDESONIDE/FORMETEROL FUMARATE 80/4.5 mcg INHALER IH SCH ×2 (09:17→22:49)
[2022-03-24 10:25] LABS: BASO % 0.2 % (0-2.0); EOS % 0.1 % (0-4.5); HEMATOCRIT 34.5 % (32.4-45.2); HEMOGLOBIN 11.4 GM/dL (10.7-15.3); LYMPH % 18.6 % (8-40); MCH 27.9 pg (25.7-33.7); MEAN CELL VOLUME 84.6 fl (80-96); MEAN PLT VOLUME 7.9 fl (7.5-11.1); MONO % 8.9 % (3.8-10.2); NEUT % 72.2 % (42.8-82.8); PLATELET COUNT 257 10^3/uL (134-434); RBC 4.08 M/mm3 (3.60-5.2); RDW 16.2 % (11.6-15.6); WHITE BLOOD COUNT 10.3 K/mm3 (4.0-10.0)
[2022-03-24 11:12] LABS: CALCIUM 8.6 mg/dL (8.5-10.1)
[2022-03-24 11:13] LABS: ALBUMIN 3.3 g/dl (3.4-5.0); MAGNESIUM 1.8 mg/dL (1.8-2.4)
[2022-03-24 11:15] LABS: CREATININE 0.7 mg/dL (0.55-1.3)
[2022-03-24 11:17] LABS: BILIRUBIN,TOTAL 1.3 mg/dL (0.2-1); TOT PROT 6.2 g/dl (6.4-8.2)
[2022-03-24] MEDS: REMDESIVIR 100 MG in SODIUM CHLORIDE 250 ML IVPB SCH (22:48)
[2022-03-25] MEDS ORDERED: diazePAM 5 MG TABLET PO ONE (06:00)
[2022-03-25 06:36] VITALS: RESP 18
[2022-03-25] MEDS: FOLIC ACID 1 MG TABLET (FP) PO SCH (09:39)
[2022-03-25] MEDS: THIAMINE HCL 100 MG TABLET (FP) PO SCH (09:39)
[2022-03-25] MEDS: BUPRENORPHINE/NALOXONE 8 MG/2 MG FILM PACKET SL SCH ×2 (09:39→21:22)
[2022-03-25] MEDS: IPRATROPIUM/ALBUTEROL (COMBIVENT) RESPIMAT 20-100 MCG IH SCH ×6 (09:39→22:11)
[2022-03-25] MEDS: CLOTRIMAZOLE 1% CREAM TP SCH ×3 (09:39→22:12)
[2022-03-25] MEDS: DEXAMETHASONE SOD PHOSPHATE 10 MG/1 ML VIAL IVPUSH SCH (09:39)
[2022-03-25] MEDS: BUDESONIDE/FORMETEROL FUMARATE 80/4.5 mcg INHALER IH SCH ×3 (09:40→22:12)
[2022-03-25] MEDS ORDERED: guaiFENesin 200 MG/10 ML 10 ML UNIT-DOSE CUPS PO PRN (09:42)
[2022-03-25] MEDS: ENOXAPARIN NA (PORCINE) 40 MG/0.4 ML DISP.SYRIN SQ SCH (09:42)
[2022-03-25 10:24] LABS: BASO % 0.2 % (0-2.0); EOS % 0.1 % (0-4.5); HEMATOCRIT 35.3 % (32.4-45.2); HEMOGLOBIN 11.7 GM/dL (10.7-15.3); MCH 27.9 pg (25.7-33.7); MCHC 33.1 g/dl (32.0-36.0); MEAN CELL VOLUME 84.2 fl (80-96); MEAN PLT VOLUME 7.9 fl (7.5-11.1); MONO % 8.1 % (3.8-10.2); NEUT % 70.6 % (42.8-82.8); PLATELET COUNT 265 10^3/uL (134-434); RBC 4.19 M/mm3 (3.60-5.2); RDW 15.9 % (11.6-15.6); WHITE BLOOD COUNT 11.5 K/mm3 (4.0-10.0)
[2022-03-25 10:47] LABS: CALCIUM 8.7 mg/dL (8.5-10.1)
[2022-03-25 10:48] LABS: ALBUMIN 3.5 g/dl (3.4-5.0); BLOOD UREA NITROGEN 16.8 mg/dL (7-18); MAGNESIUM 1.7 mg/dL (1.8-2.4)
[2022-03-25 10:50] LABS: BILIRUBIN,DIRECT 0.1 mg/dL (0.0-0.2)
[2022-03-25 10:51] LABS: CREATININE 0.6 mg/dL (0.55-1.3); PHOSPHOROUS 2.8 mg/dL (2.5-4.9)
[2022-03-25 10:52] LABS: BILIRUBIN,TOTAL 0.7 mg/dL (0.2-1); TOT PROT 6.6 g/dl (6.4-8.2)
[2022-03-25] MEDS: REMDESIVIR 100 MG in SODIUM CHLORIDE 250 ML IVPB SCH (21:22)
[2022-03-26] MEDS: IPRATROPIUM/ALBUTEROL (COMBIVENT) RESPIMAT 20-100 MCG IH SCH ×3 (09:59→18:19)
[2022-03-26] MEDS: CLOTRIMAZOLE 1% CREAM TP SCH (09:59)
[2022-03-26] MEDS: THIAMINE HCL 100 MG TABLET (FP) PO SCH (09:59)
[2022-03-26] MEDS: FOLIC ACID 1 MG TABLET (FP) PO SCH (09:59)
[2022-03-26] MEDS: BUPRENORPHINE/NALOXONE 8 MG/2 MG FILM PACKET SL SCH (09:59)
[2022-03-26] MEDS: BUDESONIDE/FORMETEROL FUMARATE 80/4.5 mcg INHALER IH SCH (10:00)
[2022-03-26] MEDS: ENOXAPARIN NA (PORCINE) 40 MG/0.4 ML DISP.SYRIN SQ SCH (10:00)
[2022-03-26] MEDS ORDERED: predniSONE 10 MG TABLET (UD) PO SCH (10:00)
[2022-03-26] MEDS ORDERED: ACETAMINOPHEN 500 MG TABLET (FP) PO ONE (11:24)
[2022-03-26 13:31] VITALS: BP 137/83; PULSE 93; TEMP 98.2
== END 2022-03-26 18:12 | disposition home or self-care (01) | DRG 137 ==
LOC: JER 18:30 → JERBED 20:35 → J5S 03-22 12:50
PROVIDERS: ADMIT Internal Medicine; ATTEND Internal Medicine
PROC: HZ2ZZZZ Detoxification Services for Substance Abuse Treatment (ICD-10-PCS; principal; 2022-03-21)
PROC: XW033E5 Introduction of Remdesivir Anti-infective into Peripheral Vein, Percutaneous Approach, New Technology Group 5 (ICD-10-PCS; 2022-03-21)
DX: U07.1 COVID-19 (principal); F11.20 Opioid dependence, uncomplicated; J45.901 Unspecified asthma with (acute) exacerbation; F19.10 Other psychoactive substance abuse, uncomplicated; R09.02 Hypoxemia; E83.42 Hypomagnesemia; B35.1 Tinea unguium; B35.3 Tinea pedis
CPT/HCPCS: 0241U-QW; 36415; 71045-TC-FY; 80053; 81003; 82248; 82728; 82803; 82962; 83540; 83550; 83615; 83735; 84100; 84484; 85025; 86140; 87086; 87389; 93005; 93010; 99291; C9399; C9803-CS; J1100; J3535; U0003; U0005

== ENCOUNTER 2022-06-18 14:14 | Inpatient (IN) | payer OTHER ==
[2022-06-18 14:47] VITALS: BMI 18.5
[2022-06-18] MEDS ORDERED: BENZONATATE 200 MG CAPSULE PO PRN (15:47)
[2022-06-18] MEDS ORDERED: MAGNESIUM HYDROX 2400MG/30ML ORAL SUSPENSION 30 ML CUP PO PRN (15:47)
[2022-06-18] MEDS ORDERED: guaiFENesin 600 MG TABLET.ER (FP) PO PRN (15:47)
[2022-06-18] MEDS ORDERED: LOPERAMIDE HCL 2 MG CAPSULE PO PRN (15:47)
[2022-06-18] MEDS ORDERED: NALOXONE HCL (KLOXXADO) 8 MG SPRAY NS PRN (15:47)
[2022-06-18] MEDS ORDERED: P-EPHED 60MG/TRIPROLIDI 2.5MG TABLET PO PRN (15:47)
[2022-06-18] MEDS ORDERED: MAG HYDROX/AL HYDROX/SIMETH 30 ML UNIT-DOSE CUP PO PRN (15:47)
[2022-06-18] MEDS ORDERED: POLYETHYLENE GLYCOL (HEALTHYLAX) 3350 17 GM PACKET PO PRN (15:47)
[2022-06-18] MEDS ORDERED: BENZOCAINE/MENTHOL (CHLORASEPTIC ) LOZENGE MM PRN (15:47)
[2022-06-18] MEDS ORDERED: DICYCLOMINE HCL 10 MG CAPSULE PO PRN (15:47)
[2022-06-18] MEDS ORDERED: ONDANSETRON *ODT* 4 MG TABLET SL PRN (15:47)
[2022-06-18] MEDS ORDERED: ACETAMINOPHEN 325 MG TABLET (FP) PO PRN (15:47)
[2022-06-18] MEDS ORDERED: NALOXONE HCL 0.4 MG/ML VIAL IM PRN (15:47)
[2022-06-18] MEDS ORDERED: hydrOXYzine PAMOATE 25 MG CAPSULE (FP) PO PRN (15:47)
[2022-06-18] MEDS ORDERED: ALBUTEROL SO4 2.5/IPRATROPIUM 0.5 INH SOL 3 ML VIAL.NEB. NEB ONE (16:26)
[2022-06-18] MEDS ORDERED: METOPROLOL TARTRATE 25 MG TABLET (FP) PO ONE (16:36)
[2022-06-18] MEDS: ALBUTEROL SO4 2.5/IPRATROPIUM 0.5 INH SOL 3 ML VIAL.NEB. NEB SCH ×2 (16:37→23:23)
[2022-06-18] MEDS ORDERED: METOPROLOL TARTRATE 25 MG TABLET (FP) ONE (16:39)
[2022-06-18] MEDS: predniSONE 10 MG TABLET (UD) PO SCH (18:26)
[2022-06-18] MEDS ORDERED: methaDONE HCL 10 MG TABLET (FOR DETOX USE ONLY) PO ONE (19:42)
[2022-06-18] MEDS: ALBUTEROL SO4 HFA INHALER IH PRN ×2 (19:54→23:17)
[2022-06-18] MEDS: THIAMINE HCL 100 MG TABLET (FP) PO SCH (22:16)
[2022-06-18] MEDS: MELATONIN 5 MG TABLETS PO PRN (23:16)
[2022-06-18] MEDS: BUDESONIDE/FORMETEROL FUMARATE 80/4.5 mcg INHALER IH SCH (23:24)
[2022-06-18] MEDS: cloNIDine HCL 0.1 MG TABLET PO PRN (23:26)
[2022-06-19] MEDS: ALBUTEROL SO4 2.5/IPRATROPIUM 0.5 INH SOL 3 ML VIAL.NEB. NEB SCH ×4 (04:50→22:37)
[2022-06-19] MEDS: cloNIDine HCL 0.1 MG TABLET PO PRN ×3 (05:29→22:36)
[2022-06-19] MEDS: ALBUTEROL SO4 HFA INHALER IH PRN ×2 (05:30→18:51)
[2022-06-19] MEDS: BUDESONIDE/FORMETEROL FUMARATE 80/4.5 mcg INHALER IH SCH ×2 (09:40→22:38)
[2022-06-19] MEDS: predniSONE 10 MG TABLET (UD) PO SCH (09:40)
[2022-06-19] MEDS: PRENATAL VITAMINS W/ FOLIC ACID TABLET (FP) PO SCH (09:40)
[2022-06-19 11:27] LABS: HEMATOCRIT 40.2 % (32.4-45.2); HEMOGLOBIN 13.4 GM/dL (10.7-15.3); MCH 27.6 pg (25.7-33.7); MCHC 33.3 g/dl (32.0-36.0); MEAN CELL VOLUME 82.9 fl (80-96); MEAN PLT VOLUME 8.3 fl (7.5-11.1); PLATELET COUNT 261 10^3/uL (134-434); RBC 4.84 M/mm3 (3.60-5.2); RDW 14.6 % (11.6-15.6); WHITE BLOOD COUNT 7.5 K/mm3 (4.0-10.0)
[2022-06-19 12:00] LABS: CALCIUM 9.5 mg/dL (8.5-10.1)
[2022-06-19 12:01] LABS: ALBUMIN 3.4 g/dl (3.4-5.0); BLOOD UREA NITROGEN 9.5 mg/dL (7-18)
[2022-06-19 12:04] LABS: BILIRUBIN,TOTAL 0.8 mg/dL (0.2-1); CREATININE 0.5 mg/dL (0.55-1.3)
[2022-06-19 12:06] LABS: TOT PROT 6.6 g/dl (6.4-8.2)
[2022-06-19] MEDS: diazePAM 5 MG TABLET PO PRN ×2 (15:57→22:32)
[2022-06-19] MEDS: MELATONIN 5 MG TABLETS PO PRN (22:31)
[2022-06-19] MEDS: THIAMINE HCL 100 MG TABLET (FP) PO SCH (22:32)
[2022-06-19] MEDS: SUVOREXANT 10 MG TABLET PO PRN (22:35)
[2022-06-20] MEDS ORDERED: methaDONE HCL 10 MG TABLET (FOR DETOX USE ONLY) PO ONE (10:00)
[2022-06-20] MEDS: predniSONE 10 MG TABLET (UD) PO SCH (10:07)
[2022-06-20] MEDS: PRENATAL VITAMINS W/ FOLIC ACID TABLET (FP) PO SCH (10:08)
[2022-06-20] MEDS: ALBUTEROL SO4 HFA INHALER IH PRN ×2 (10:09→22:00)
[2022-06-20] MEDS: diazePAM 5 MG TABLET PO PRN ×3 (10:11→23:23)
[2022-06-20] MEDS: ALBUTEROL SO4 2.5/IPRATROPIUM 0.5 INH SOL 3 ML VIAL.NEB. NEB SCH ×3 (11:42→22:51)
[2022-06-20] MEDS: BUDESONIDE/FORMETEROL FUMARATE 80/4.5 mcg INHALER IH SCH ×2 (11:47→21:50)
[2022-06-20] MEDS: cloNIDine HCL 0.1 MG TABLET PO PRN ×2 (15:04→21:53)
[2022-06-20] MEDS: SUVOREXANT 10 MG TABLET PO PRN (21:52)
[2022-06-20] MEDS: THIAMINE HCL 100 MG TABLET (FP) PO SCH (21:53)
[2022-06-21] MEDS: ALBUTEROL SO4 2.5/IPRATROPIUM 0.5 INH SOL 3 ML VIAL.NEB. NEB SCH ×4 (04:03→22:09)
[2022-06-21] MEDS: diazePAM 5 MG TABLET PO PRN ×4 (05:36→23:37)
[2022-06-21] MEDS: PRENATAL VITAMINS W/ FOLIC ACID TABLET (FP) PO SCH (10:01)
[2022-06-21] MEDS: BUDESONIDE/FORMETEROL FUMARATE 80/4.5 mcg INHALER IH SCH ×2 (10:01→22:08)
[2022-06-21] MEDS: predniSONE 10 MG TABLET (UD) PO SCH (10:04)
[2022-06-21] MEDS: ALBUTEROL SO4 HFA INHALER IH PRN (19:01)
[2022-06-21] MEDS: MELATONIN 5 MG TABLETS PO PRN (22:10)
[2022-06-21] MEDS: THIAMINE HCL 100 MG TABLET (FP) PO SCH (22:10)
[2022-06-21] MEDS: SUVOREXANT 10 MG TABLET PO PRN (22:11)
[2022-06-22] MEDS: ALBUTEROL SO4 2.5/IPRATROPIUM 0.5 INH SOL 3 ML VIAL.NEB. NEB SCH ×5 (04:00→23:01)
[2022-06-22] MEDS: diazePAM 5 MG TABLET PO PRN ×4 (05:48→23:09)
[2022-06-22] MEDS: ALBUTEROL SO4 HFA INHALER IH PRN (07:33)
[2022-06-22] MEDS ORDERED: methaDONE HCL 10 MG TABLET (FOR DETOX USE ONLY) PO ONE (10:00)
[2022-06-22] MEDS: BUDESONIDE/FORMETEROL FUMARATE 80/4.5 mcg INHALER IH SCH ×2 (10:02→21:52)
[2022-06-22] MEDS: predniSONE 10 MG TABLET (UD) PO SCH (10:02)
[2022-06-22] MEDS: PRENATAL VITAMINS W/ FOLIC ACID TABLET (FP) PO SCH (10:03)
[2022-06-22] MEDS: SUVOREXANT 10 MG TABLET PO PRN (21:51)
[2022-06-22] MEDS: THIAMINE HCL 100 MG TABLET (FP) PO SCH (21:52)
[2022-06-22] MEDS: MELATONIN 5 MG TABLETS PO PRN (23:10)
[2022-06-23] MEDS: ALBUTEROL SO4 2.5/IPRATROPIUM 0.5 INH SOL 3 ML VIAL.NEB. NEB SCH ×2 (04:03→10:23)
[2022-06-23] MEDS: diazePAM 5 MG TABLET PO PRN (08:04)
[2022-06-23 09:33] VITALS: BP 125/81; PULSE 100; RESP 20; TEMP 98.1
[2022-06-23] MEDS: PRENATAL VITAMINS W/ FOLIC ACID TABLET (FP) PO SCH (10:21)
[2022-06-23] MEDS: BUDESONIDE/FORMETEROL FUMARATE 80/4.5 mcg INHALER IH SCH (10:21)
[2022-06-23] MEDS: predniSONE 10 MG TABLET (UD) PO SCH (10:21)
== END 2022-06-23 12:07 | disposition other institution (70) | DRG 773 ==
LOC: YASAS 14:14 → Y6N 17:20
PROVIDERS: ADMIT Allergy & Immunology; ATTEND Surgery
PROC: HZ2ZZZZ Detoxification Services for Substance Abuse Treatment (ICD-10-PCS; principal; 2022-06-18)
DX: F11.23 Opioid dependence with withdrawal (principal); F10.20 Alcohol dependence, uncomplicated; F14.20 Cocaine dependence, uncomplicated; F19.280 Other psychoactive substance dependence with psychoactive substance-induced anxiety disorder; F19.282 Other psychoactive substance dependence with psychoactive substance-induced sleep disorder; F19.24 Other psychoactive substance dependence with psychoactive substance-induced mood disorder; F41.9 Anxiety disorder, unspecified; F32.9 Major depressive disorder, single episode, unspecified; J45.40 Moderate persistent asthma, uncomplicated; Z86.16 Personal history of COVID-19
CPT/HCPCS: 36415; 80053; 85027; 86780; 94640; C9803-CS; U0003; U0005

== ENCOUNTER 2022-06-23 12:20 | Inpatient (IN) | payer OTHER ==
[2022-06-23] MEDS ORDERED: POLYETHYLENE GLYCOL (HEALTHYLAX) 3350 17 GM PACKET PO PRN (13:26)
[2022-06-23] MEDS ORDERED: NICOTINE POLACRILEX 2 MG GUM BUC PRN (13:26)
[2022-06-23] MEDS ORDERED: BENZONATATE 200 MG CAPSULE PO PRN (13:26)
[2022-06-23] MEDS ORDERED: LOPERAMIDE HCL 2 MG CAPSULE PO PRN (13:26)
[2022-06-23] MEDS ORDERED: NALOXONE HCL (KLOXXADO) 8 MG SPRAY NS PRN (13:26)
[2022-06-23] MEDS ORDERED: guaiFENesin 600 MG TABLET.ER (FP) PO PRN (13:26)
[2022-06-23] MEDS ORDERED: IBUPROFEN 400 MG TABLET (FP) PO PRN (13:26)
[2022-06-23] MEDS ORDERED: MAG HYDROX/AL HYDROX/SIMETH 30 ML UNIT-DOSE CUP PO PRN (13:26)
[2022-06-23] MEDS ORDERED: NICOTINE 10 MG CARTRIDGE (INHALER) IH PRN (13:26)
[2022-06-23] MEDS ORDERED: IBUPROFEN 600 MG TABLET (FP) PO PRN (13:26)
[2022-06-23] MEDS ORDERED: MAGNESIUM HYDROX 2400MG/30ML ORAL SUSPENSION 30 ML CUP PO PRN (13:26)
[2022-06-23] MEDS ORDERED: BENZOCAINE/MENTHOL (CHLORASEPTIC ) LOZENGE MM PRN (13:26)
[2022-06-23] MEDS ORDERED: NALOXONE HCL 0.4 MG/ML VIAL IVPUSH PRN (13:26)
[2022-06-23] MEDS: METHOCARBAMOL 500 MG TABLET PO PRN (14:51)
[2022-06-23] MEDS: hydrOXYzine PAMOATE 25 MG CAPSULE (FP) PO PRN ×2 (14:51→21:08)
[2022-06-23] MEDS: cloNIDine HCL 0.1 MG TABLET PO SCH (21:06)
[2022-06-23] MEDS: SUVOREXANT 15 MG TABLET PO PRN (21:06)
[2022-06-23] MEDS: THIAMINE HCL 100 MG TABLET (FP) PO SCH (21:06)
[2022-06-23] MEDS: BUDESONIDE/FORMETEROL FUMARATE 80/4.5 mcg INHALER IH SCH (21:08)
[2022-06-23] MEDS ORDERED: MELATONIN 5 MG TABLETS PO SCH (22:00)
[2022-06-24] MEDS: hydrOXYzine PAMOATE 25 MG CAPSULE (FP) PO PRN (06:11)
[2022-06-24] MEDS: PRENATAL VITAMINS W/ FOLIC ACID TABLET (FP) PO SCH (10:08)
[2022-06-24] MEDS: BUDESONIDE/FORMETEROL FUMARATE 80/4.5 mcg INHALER IH SCH ×2 (10:10→21:26)
[2022-06-24] MEDS: predniSONE 10 MG TABLET (UD) PO SCH (10:10)
[2022-06-24] MEDS: ESCITALOPRAM OXALATE 10 MG TABLET PO SCH (10:10)
[2022-06-24] MEDS: cloNIDine HCL 0.1 MG TABLET PO SCH ×2 (10:10→21:19)
[2022-06-24 12:20] LABS: HIV INTERPRETATION NEGATIVE (NEGATIVE)
[2022-06-24] MEDS: METHOCARBAMOL 500 MG TABLET PO PRN (16:10)
[2022-06-24] MEDS: ALBUTEROL SO4 HFA INHALER IH PRN (21:19)
[2022-06-24] MEDS: THIAMINE HCL 100 MG TABLET (FP) PO SCH (21:19)
[2022-06-24] MEDS: SUVOREXANT 15 MG TABLET PO PRN (21:22)
[2022-06-25] MEDS: PRENATAL VITAMINS W/ FOLIC ACID TABLET (FP) PO SCH (09:37)
[2022-06-25] MEDS: ESCITALOPRAM OXALATE 10 MG TABLET PO SCH (09:37)
[2022-06-25] MEDS: predniSONE 10 MG TABLET (UD) PO SCH (09:37)
[2022-06-25] MEDS: BUDESONIDE/FORMETEROL FUMARATE 80/4.5 mcg INHALER IH SCH ×2 (09:38→21:05)
[2022-06-25] MEDS: hydrOXYzine PAMOATE 25 MG CAPSULE (FP) PO PRN ×2 (09:39→15:31)
[2022-06-25] MEDS: METHOCARBAMOL 500 MG TABLET PO PRN ×2 (09:39→15:31)
[2022-06-25] MEDS: cloNIDine HCL 0.1 MG TABLET PO SCH ×2 (12:22→21:05)
[2022-06-25] MEDS: ALBUTEROL SO4 HFA INHALER IH PRN ×2 (14:29→21:04)
[2022-06-25] MEDS: THIAMINE HCL 100 MG TABLET (FP) PO SCH (21:05)
[2022-06-25] MEDS: QUEtiapine FUMARATE 50 MG TABLET PO PRN (21:05)
[2022-06-26] MEDS: hydrOXYzine PAMOATE 25 MG CAPSULE (FP) PO PRN ×3 (09:47→21:41)
[2022-06-26] MEDS: PRENATAL VITAMINS W/ FOLIC ACID TABLET (FP) PO SCH (09:47)
[2022-06-26] MEDS: METHOCARBAMOL 500 MG TABLET PO PRN ×3 (09:48→21:41)
[2022-06-26] MEDS: cloNIDine HCL 0.1 MG TABLET PO SCH (09:48)
[2022-06-26] MEDS: ESCITALOPRAM OXALATE 10 MG TABLET PO SCH (09:48)
[2022-06-26] MEDS: BUDESONIDE/FORMETEROL FUMARATE 80/4.5 mcg INHALER IH SCH ×2 (09:48→21:43)
[2022-06-26] MEDS: ALBUTEROL SO4 HFA INHALER IH PRN (09:48)
[2022-06-26] MEDS: predniSONE 5 MG TABLET (UD) PO SCH (09:49)
[2022-06-26] MEDS: THIAMINE HCL 100 MG TABLET (FP) PO SCH (21:40)
[2022-06-26] MEDS: QUEtiapine FUMARATE 50 MG TABLET PO PRN (21:40)
[2022-06-27] MEDS: ESCITALOPRAM OXALATE 10 MG TABLET PO SCH (10:24)
[2022-06-27] MEDS: predniSONE 5 MG TABLET (UD) PO SCH (10:24)
[2022-06-27] MEDS: BUDESONIDE/FORMETEROL FUMARATE 80/4.5 mcg INHALER IH SCH ×2 (10:24→23:15)
[2022-06-27] MEDS: PRENATAL VITAMINS W/ FOLIC ACID TABLET (FP) PO SCH (10:27)
[2022-06-27] MEDS: hydrOXYzine PAMOATE 25 MG CAPSULE (FP) PO PRN ×2 (10:27→21:12)
[2022-06-27] MEDS: METHOCARBAMOL 500 MG TABLET PO PRN ×2 (10:27→21:11)
[2022-06-27] MEDS: THIAMINE HCL 100 MG TABLET (FP) PO SCH (21:07)
[2022-06-27] MEDS: QUEtiapine FUMARATE 50 MG TABLET PO PRN (21:11)
[2022-06-28] MEDS: hydrOXYzine PAMOATE 25 MG CAPSULE (FP) PO PRN ×2 (10:29→18:59)
[2022-06-28] MEDS: METHOCARBAMOL 500 MG TABLET PO PRN ×2 (10:29→19:00)
[2022-06-28] MEDS: BUDESONIDE/FORMETEROL FUMARATE 80/4.5 mcg INHALER IH SCH ×2 (10:30→22:07)
[2022-06-28] MEDS: PRENATAL VITAMINS W/ FOLIC ACID TABLET (FP) PO SCH (10:30)
[2022-06-28] MEDS: ESCITALOPRAM OXALATE 10 MG TABLET PO SCH (10:30)
[2022-06-28] MEDS: ALBUTEROL SO4 HFA INHALER IH PRN (10:31)
[2022-06-28] MEDS: predniSONE 5 MG TABLET (UD) PO SCH (11:18)
[2022-06-28] MEDS ORDERED: cloNIDine HCL 0.1 MG TABLET PO ONE (14:47)
[2022-06-28] MEDS: QUEtiapine FUMARATE 50 MG TABLET PO PRN (22:05)
[2022-06-28] MEDS: THIAMINE HCL 100 MG TABLET (FP) PO SCH (22:05)
[2022-06-28] MEDS: cloNIDine HCL 0.1 MG TABLET PO SCH (22:06)
[2022-06-29] MEDS: METHOCARBAMOL 500 MG TABLET PO PRN (09:33)
[2022-06-29] MEDS: ESCITALOPRAM OXALATE 10 MG TABLET PO SCH (09:33)
[2022-06-29] MEDS: hydrOXYzine PAMOATE 25 MG CAPSULE (FP) PO PRN ×2 (09:33→17:41)
[2022-06-29] MEDS: predniSONE 5 MG TABLET (UD) PO SCH (09:33)
[2022-06-29] MEDS: cloNIDine HCL 0.1 MG TABLET PO SCH ×2 (09:34→21:00)
[2022-06-29] MEDS: BUDESONIDE/FORMETEROL FUMARATE 80/4.5 mcg INHALER IH SCH ×2 (11:10→21:00)
[2022-06-29] MEDS: PRENATAL VITAMINS W/ FOLIC ACID TABLET (FP) PO SCH (11:10)
[2022-06-29] MEDS: ACETAMINOPHEN 325 MG TABLET (FP) PO PRN (17:42)
[2022-06-29] MEDS: ALBUTEROL SO4 HFA INHALER IH PRN (21:00)
[2022-06-29] MEDS: THIAMINE HCL 100 MG TABLET (FP) PO SCH (21:00)
[2022-06-29] MEDS: QUEtiapine FUMARATE 50 MG TABLET PO PRN (21:01)
[2022-06-30] MEDS: PRENATAL VITAMINS W/ FOLIC ACID TABLET (FP) PO SCH (09:30)
[2022-06-30] MEDS: ESCITALOPRAM OXALATE 10 MG TABLET PO SCH (09:30)
[2022-06-30] MEDS: BUDESONIDE/FORMETEROL FUMARATE 80/4.5 mcg INHALER IH SCH ×2 (09:31→21:01)
[2022-06-30] MEDS: cloNIDine HCL 0.1 MG TABLET PO SCH ×3 (09:33→21:02)
[2022-06-30] MEDS ORDERED: BUPRENORPHINE/NALOXONE 2 MG/0.5 MG FILM PACKET SL SCH (10:00)
[2022-06-30] MEDS: BUPRENORPHINE/NALOXONE 2 MG/0.5 MG FILM PACKET SL SCH ×2 (10:39→21:02)
[2022-06-30] MEDS: THIAMINE HCL 100 MG TABLET (FP) PO SCH (21:01)
[2022-06-30] MEDS: QUEtiapine FUMARATE 50 MG TABLET PO PRN (21:01)
[2022-07-01] MEDS: hydrOXYzine PAMOATE 25 MG CAPSULE (FP) PO PRN ×3 (02:34→21:10)
[2022-07-01] MEDS: cloNIDine HCL 0.1 MG TABLET PO SCH (10:11)
[2022-07-01] MEDS: BUDESONIDE/FORMETEROL FUMARATE 80/4.5 mcg INHALER IH SCH ×2 (10:11→21:47)
[2022-07-01] MEDS: ESCITALOPRAM OXALATE 10 MG TABLET PO SCH (10:11)
[2022-07-01] MEDS: PRENATAL VITAMINS W/ FOLIC ACID TABLET (FP) PO SCH (10:11)
[2022-07-01] MEDS: BUPRENORPHINE/NALOXONE 2 MG/0.5 MG FILM PACKET SL SCH ×2 (10:12→21:08)
[2022-07-01] MEDS: QUEtiapine FUMARATE 100 MG TABLET (FP) PO PRN (21:08)
[2022-07-01] MEDS: THIAMINE HCL 100 MG TABLET (FP) PO SCH (21:08)
[2022-07-02] MEDS: BUPRENORPHINE/NALOXONE 2 MG/0.5 MG FILM PACKET SL SCH ×2 (09:29→21:13)
[2022-07-02] MEDS: BUDESONIDE/FORMETEROL FUMARATE 80/4.5 mcg INHALER IH SCH ×2 (09:29→21:12)
[2022-07-02] MEDS: ESCITALOPRAM OXALATE 10 MG TABLET PO SCH (09:30)
[2022-07-02] MEDS: PRENATAL VITAMINS W/ FOLIC ACID TABLET (FP) PO SCH (09:30)
[2022-07-02] MEDS: hydrOXYzine PAMOATE 25 MG CAPSULE (FP) PO PRN ×2 (09:31→21:13)
[2022-07-02] MEDS: QUEtiapine FUMARATE 100 MG TABLET (FP) PO PRN (21:12)
[2022-07-02] MEDS: THIAMINE HCL 100 MG TABLET (FP) PO SCH (21:12)
[2022-07-03] MEDS: ESCITALOPRAM OXALATE 10 MG TABLET PO SCH (09:50)
[2022-07-03] MEDS: PRENATAL VITAMINS W/ FOLIC ACID TABLET (FP) PO SCH (09:50)
[2022-07-03] MEDS: BUPRENORPHINE/NALOXONE 2 MG/0.5 MG FILM PACKET SL SCH ×2 (09:50→21:06)
[2022-07-03] MEDS: BUDESONIDE/FORMETEROL FUMARATE 80/4.5 mcg INHALER IH SCH ×2 (09:51→23:44)
[2022-07-03] MEDS: hydrOXYzine PAMOATE 25 MG CAPSULE (FP) PO PRN (16:46)
[2022-07-03] MEDS: THIAMINE HCL 100 MG TABLET (FP) PO SCH (21:06)
[2022-07-03] MEDS: QUEtiapine FUMARATE 100 MG TABLET (FP) PO PRN (21:07)
[2022-07-04] MEDS: ESCITALOPRAM OXALATE 10 MG TABLET PO SCH (09:51)
[2022-07-04] MEDS: BUDESONIDE/FORMETEROL FUMARATE 80/4.5 mcg INHALER IH SCH ×2 (09:52→21:05)
[2022-07-04] MEDS: BUPRENORPHINE/NALOXONE 2 MG/0.5 MG FILM PACKET SL SCH (09:52)
[2022-07-04] MEDS: PRENATAL VITAMINS W/ FOLIC ACID TABLET (FP) PO SCH (09:52)
[2022-07-04] MEDS: hydrOXYzine PAMOATE 25 MG CAPSULE (FP) PO PRN ×2 (09:53→17:53)
[2022-07-04] MEDS: QUEtiapine FUMARATE 100 MG TABLET (FP) PO PRN (21:05)
[2022-07-04] MEDS: BUPRENORPHINE/NALOXONE 4 MG/1 MG FILM PACKET SL SCH (21:05)
[2022-07-04] MEDS: THIAMINE HCL 100 MG TABLET (FP) PO SCH (21:05)
[2022-07-04] MEDS: ALBUTEROL SO4 HFA INHALER IH PRN (21:06)
[2022-07-05] MEDS: COLLOIDAL OATMEAL 1 BAR EACH TP PRN (06:40)
[2022-07-05] MEDS: hydrOXYzine PAMOATE 25 MG CAPSULE (FP) PO PRN ×2 (07:31→18:39)
[2022-07-05] MEDS: PRENATAL VITAMINS W/ FOLIC ACID TABLET (FP) PO SCH (10:18)
[2022-07-05] MEDS: BUPRENORPHINE/NALOXONE 4 MG/1 MG FILM PACKET SL SCH ×2 (10:20→21:05)
[2022-07-05] MEDS: BUDESONIDE/FORMETEROL FUMARATE 80/4.5 mcg INHALER IH SCH ×2 (10:20→21:05)
[2022-07-05] MEDS: ESCITALOPRAM OXALATE 10 MG TABLET PO SCH (10:20)
[2022-07-05] MEDS: THIAMINE HCL 100 MG TABLET (FP) PO SCH (21:05)
[2022-07-05] MEDS: QUEtiapine FUMARATE 100 MG TABLET (FP) PO PRN (21:05)
[2022-07-06] MEDS: BUDESONIDE/FORMETEROL FUMARATE 80/4.5 mcg INHALER IH SCH ×2 (09:47→21:10)
[2022-07-06] MEDS: PRENATAL VITAMINS W/ FOLIC ACID TABLET (FP) PO SCH (09:47)
[2022-07-06] MEDS: BUPRENORPHINE/NALOXONE 4 MG/1 MG FILM PACKET SL SCH ×2 (09:47→21:08)
[2022-07-06] MEDS: ESCITALOPRAM OXALATE 10 MG TABLET PO SCH (09:47)
[2022-07-06] MEDS: hydrOXYzine PAMOATE 25 MG CAPSULE (FP) PO PRN ×2 (09:48→17:34)
[2022-07-06] MEDS: THIAMINE HCL 100 MG TABLET (FP) PO SCH (21:07)
[2022-07-06] MEDS: QUEtiapine FUMARATE 100 MG TABLET (FP) PO PRN (21:07)
[2022-07-07] MEDS: PRENATAL VITAMINS W/ FOLIC ACID TABLET (FP) PO SCH (10:17)
[2022-07-07] MEDS: ESCITALOPRAM OXALATE 10 MG TABLET PO SCH (10:17)
[2022-07-07] MEDS: BUDESONIDE/FORMETEROL FUMARATE 80/4.5 mcg INHALER IH SCH ×2 (10:18→21:03)
[2022-07-07] MEDS: hydrOXYzine PAMOATE 25 MG CAPSULE (FP) PO PRN ×2 (10:18→17:48)
[2022-07-07] MEDS: BUPRENORPHINE/NALOXONE 4 MG/1 MG FILM PACKET SL SCH ×2 (10:18→21:02)
[2022-07-07] MEDS: THIAMINE HCL 100 MG TABLET (FP) PO SCH (21:01)
[2022-07-07] MEDS: QUEtiapine FUMARATE 100 MG TABLET (FP) PO PRN (21:01)
[2022-07-08] MEDS: ESCITALOPRAM OXALATE 10 MG TABLET PO SCH (09:37)
[2022-07-08] MEDS: hydrOXYzine PAMOATE 25 MG CAPSULE (FP) PO PRN ×2 (09:37→17:37)
[2022-07-08] MEDS: PRENATAL VITAMINS W/ FOLIC ACID TABLET (FP) PO SCH (09:37)
[2022-07-08] MEDS: BUDESONIDE/FORMETEROL FUMARATE 80/4.5 mcg INHALER IH SCH ×2 (09:37→21:08)
[2022-07-08] MEDS: BUPRENORPHINE/NALOXONE 4 MG/1 MG FILM PACKET SL SCH ×2 (09:38→21:07)
[2022-07-08] MEDS: ACETAMINOPHEN 325 MG TABLET (FP) PO PRN (19:27)
[2022-07-08] MEDS: QUEtiapine FUMARATE 100 MG TABLET (FP) PO PRN (21:07)
[2022-07-08] MEDS: THIAMINE HCL 100 MG TABLET (FP) PO SCH (21:07)
[2022-07-08] MEDS: ALBUTEROL SO4 HFA INHALER IH PRN (21:08)
[2022-07-09] MEDS: hydrOXYzine PAMOATE 25 MG CAPSULE (FP) PO PRN ×2 (09:37→17:55)
[2022-07-09] MEDS: PRENATAL VITAMINS W/ FOLIC ACID TABLET (FP) PO SCH (09:37)
[2022-07-09] MEDS: BUDESONIDE/FORMETEROL FUMARATE 80/4.5 mcg INHALER IH SCH ×2 (09:38→21:03)
[2022-07-09] MEDS: BUPRENORPHINE/NALOXONE 4 MG/1 MG FILM PACKET SL SCH ×2 (09:38→21:01)
[2022-07-09] MEDS: ESCITALOPRAM OXALATE 10 MG TABLET PO SCH (09:38)
[2022-07-09] MEDS: QUEtiapine FUMARATE 100 MG TABLET (FP) PO PRN (21:02)
[2022-07-09] MEDS: THIAMINE HCL 100 MG TABLET (FP) PO SCH (21:02)
[2022-07-10] MEDS: BUPRENORPHINE/NALOXONE 4 MG/1 MG FILM PACKET SL SCH ×2 (09:44→21:11)
[2022-07-10] MEDS: BUDESONIDE/FORMETEROL FUMARATE 80/4.5 mcg INHALER IH SCH ×2 (09:44→21:10)
[2022-07-10] MEDS: ESCITALOPRAM OXALATE 10 MG TABLET PO SCH (09:45)
[2022-07-10] MEDS: PRENATAL VITAMINS W/ FOLIC ACID TABLET (FP) PO SCH (09:45)
[2022-07-10] MEDS: hydrOXYzine PAMOATE 25 MG CAPSULE (FP) PO PRN (14:48)
[2022-07-10] MEDS: THIAMINE HCL 100 MG TABLET (FP) PO SCH (21:10)
[2022-07-10] MEDS: QUEtiapine FUMARATE 100 MG TABLET (FP) PO PRN (21:10)
[2022-07-11] MEDS: ACETAMINOPHEN 325 MG TABLET (FP) PO PRN (08:55)
[2022-07-11] MEDS: hydrOXYzine PAMOATE 25 MG CAPSULE (FP) PO PRN (08:55)
[2022-07-11] MEDS: ESCITALOPRAM OXALATE 10 MG TABLET PO SCH (10:03)
[2022-07-11] MEDS: BUPRENORPHINE/NALOXONE 4 MG/1 MG FILM PACKET SL SCH ×2 (10:03→21:34)
[2022-07-11] MEDS: BUDESONIDE/FORMETEROL FUMARATE 80/4.5 mcg INHALER IH SCH ×2 (10:03→21:37)
[2022-07-11] MEDS: PRENATAL VITAMINS W/ FOLIC ACID TABLET (FP) PO SCH (10:04)
[2022-07-11] MEDS: QUEtiapine FUMARATE 100 MG TABLET (FP) PO PRN (21:33)
[2022-07-11] MEDS: ALBUTEROL SO4 HFA INHALER IH PRN (21:34)
[2022-07-11] MEDS: THIAMINE HCL 100 MG TABLET (FP) PO SCH (21:34)
[2022-07-12 07:39] VITALS: RESP 18
[2022-07-12] MEDS: ESCITALOPRAM OXALATE 10 MG TABLET PO SCH (09:41)
[2022-07-12] MEDS: NICOTINE 10 MG CARTRIDGE (INHALER) IH PRN (09:41)
[2022-07-12] MEDS: BUDESONIDE/FORMETEROL FUMARATE 80/4.5 mcg INHALER IH SCH ×2 (09:41→21:07)
[2022-07-12] MEDS: BUPRENORPHINE/NALOXONE 4 MG/1 MG FILM PACKET SL SCH ×2 (09:42→21:07)
[2022-07-12] MEDS: PRENATAL VITAMINS W/ FOLIC ACID TABLET (FP) PO SCH (09:42)
[2022-07-12] MEDS: hydrOXYzine PAMOATE 25 MG CAPSULE (FP) PO PRN ×2 (15:53→23:30)
[2022-07-12] MEDS: ACETAMINOPHEN 325 MG TABLET (FP) PO PRN (17:08)
[2022-07-12] MEDS: COLLOIDAL OATMEAL 1 BAR EACH TP PRN (20:06)
[2022-07-12] MEDS: THIAMINE HCL 100 MG TABLET (FP) PO SCH (21:07)
[2022-07-12] MEDS: QUEtiapine FUMARATE 100 MG TABLET (FP) PO PRN (21:07)
[2022-07-13] MEDS: PRENATAL VITAMINS W/ FOLIC ACID TABLET (FP) PO SCH (09:42)
[2022-07-13] MEDS: ESCITALOPRAM OXALATE 10 MG TABLET PO SCH (09:42)
[2022-07-13] MEDS: BUDESONIDE/FORMETEROL FUMARATE 80/4.5 mcg INHALER IH SCH ×2 (09:43→21:01)
[2022-07-13] MEDS: BUPRENORPHINE/NALOXONE 4 MG/1 MG FILM PACKET SL SCH ×2 (09:43→21:01)
[2022-07-13 11:37] VITALS: TEMP 98.1
[2022-07-13] MEDS: NICOTINE 10 MG CARTRIDGE (INHALER) IH PRN (14:13)
[2022-07-13] MEDS: hydrOXYzine PAMOATE 25 MG CAPSULE (FP) PO PRN (14:14)
[2022-07-13] MEDS: QUEtiapine FUMARATE 100 MG TABLET (FP) PO PRN (21:01)
[2022-07-13] MEDS: THIAMINE HCL 100 MG TABLET (FP) PO SCH (21:01)
[2022-07-14 07:25] VITALS: BP 108/65; PULSE 83
[2022-07-14] MEDS: BUPRENORPHINE/NALOXONE 4 MG/1 MG FILM PACKET SL SCH (09:16)
[2022-07-14] MEDS: BUDESONIDE/FORMETEROL FUMARATE 80/4.5 mcg INHALER IH SCH (09:16)
[2022-07-14] MEDS: PRENATAL VITAMINS W/ FOLIC ACID TABLET (FP) PO SCH (09:20)
[2022-07-14] MEDS: ESCITALOPRAM OXALATE 10 MG TABLET PO SCH (09:20)
[2022-07-14] MEDS: hydrOXYzine PAMOATE 25 MG CAPSULE (FP) PO PRN (10:28)
== END 2022-07-14 10:45 | disposition home or self-care (01) | DRG 772 ==
LOC: YASAS 12:20 → Y5N 12:21
PROVIDERS: ADMIT Allergy & Immunology; ATTEND Psychiatry & Neurology Pain Medicine
PROC: HZ42ZZZ Group Counseling for Substance Abuse Treatment, Cognitive-Behavioral (ICD-10-PCS; principal; 2022-06-23)
DX: F11.20 Opioid dependence, uncomplicated (principal); F14.20 Cocaine dependence, uncomplicated; F10.10 Alcohol abuse, uncomplicated; F32.A Depression, unspecified; Z87.891 Personal history of nicotine dependence; Z88.6 Allergy status to analgesic agent
CPT/HCPCS: 36415; 86803; 87389